=== PATIENT | male | born 1960 | race Caucasian/White ===

== ENCOUNTER → 2017-05-08 | Outpatient (CLI) | payer MEDICARE ==
[2014-03-14 16:40] VITALS: BMI 45.5
[~2017-05-08] MED LIST: ALB0.5 INH; ALB17R INH; ALBU2.5V44 IH; ALBU8.5H IH; ALBU8.5H12 IH; ALBUDR INH; AMIT-108 PO; AMIT100T53 PO; ASP325 PO; ASPI-719 PO; AUG875 PO; AUGMENTIN; AZI250 PO; AZIT500T47 PO; CALC150C PO; CALC500T42 PO; CALC600T59 PO; CALC600T72 PO; CEF300 PO; CEFU500T10 PO; CEP500 PO; CEPH500T7 PO; CIP500 PO; CYAN500T49 PO; CYAN50TA3 PO; CYC10 PO; CYCL10TA29 PO; DIC10 PO; DICL1ADH32 TD; DIPH-1 PO; DOCU-299 PO; DUONEB INH; ENO40I SQ; FAM20 PO; FLU10 PO; FLU20 PO; FLUO-177 PO; FLUO40CA76 PO; GABA-549 PO; GLUC500T13 PO; GUAI-447 PO; HCTZ25 PO; HYDR-385 PO; HYDR-389 PO; HYDR-855 PO; HYDR473S4 PO; IBU200 PO; IBU600 PO; IBU800 PO; IBUP800T37 PO; INHALER; KET10 PO; LEVO500T PO; LIS10 PO; LIS20 PO; LISI-368 PO; LOR10/325 PO; LOR10/500 PO; LOR5 PO; LOR5/325 PO; LOR7.5/325 PO; LOV20 PO; LOVA20TA99 PO; MELO-207 PO; METH4TAB57 PO; METO-259 PO; METR-1 PO; METR250 PO; METXL50 PO; MIR; MIRT-22 PO; MORP-181 PO; MULT-1047 PO; MULT-1367 PO; MULT-806 PO; MULT-892 PO; MULT1CAP41 PO; NIT4 SL; NITRO; OXYC15TA79 PO; OXYC20TA86 PO; OXYC5CAP21 PO; OXYGEN INH; PER PO; PRE20 PO; PSE30 PO; RIZA10 PO; SPIR25TA78 PO; THIA100T55 PO; THIA20TA PO; TRA50 PO; TRAZ-133 PO; TRAZ50 PO; TRIC15T TOP; VENL150C61 PO; WARF4TAB47 PO; ZPACK; [UNRECOGNIZED DRUG - CODE] PO; toprol XL
== END ==
LOC: LAB 07:08
PROVIDERS: ATTEND Clinical Nurse Specialist Family Health
DX: Z79.899 Other long term (current) drug therapy (principal)
CPT/HCPCS: 36415; 82040; 82247; 82310; 82374; 82435; 82465; 82565; 82947; 83718; 84075; 84132; 84155; 84295; 84439; 84443; 84450; 84460; 84478; 84520

== ENCOUNTER → 2017-08-07 | Outpatient (CLI) | payer MEDICARE ==
[2014-03-14 16:40] VITALS: BMI 45.5
--- NOTE | 2017-08-07 12:56 | EKG ---
FACILITY: [facility] PATIENT NAME: JOE BLUNT : [id number] MR: [id number] V: [id number] EXAM DATE: ORDERING PHYSICIAN: TRUDI WALTERS TECHNOLOGIST: Erasmo Henson Reason : Blood Pressure : / mmHG Vent. Rate : 072 BPM Atrial Rate : 072 BPM P-R Int : 156 ms QRS Dur : 106 ms QT Int : 408 ms P-R-T Axes : 066 -28 066 degrees QTc Int : 446 ms Sinus rhythm Left axis Possible biatrial enlargement Nonspecific interventricular conduction delay Confirmed by MADHU SAAVEDRA ([id number]) on 08/07/2017 4:24:10 PM Referred By: Confirmed By:MADHU SAAVEDRA
== END ==
LOC: CARD 12:40
DX: I45.4 Nonspecific intraventricular block (principal)
CPT/HCPCS: 93005

== ENCOUNTER 2017-09-15 16:40 | Emergency (ER) | payer MEDICARE ==
[2014-03-14 16:40] VITALS: Wt 137.0 kg
[2017-09-15] MEDS ORDERED: METH10 PO (17:04)
[2017-09-15] MEDS ORDERED: METH-278 PO (17:06)
--- NOTE | 2017-09-15 17:09 | ER Report ---
History and Physical Time Seen By MD: 17:08 Hx. of Stated Complaint: URINARY RETENTION SINCE FRIDAY, GETTING WORSE, ALSO HAS LOW BACK PAIN HPI/ROS CHIEF COMPLAINT: Urinary retention HISTORY OF PRESENT ILLNESS: This is a 57-year-old male who presents to the emergency department for urinary retention and flank pain. Patient states that over the last couple of days he's had intermittent urinary retention, with some increased back pain. Patient states he's had some kidney failure issues in the past, as well as kidney stones. Patient also states that he has right lower quadrant pain. Patient denies chest pain or shortness of breath. No fevers or chills. No rashes. REVIEW OF SYSTEMS: Constitutional: No fever, no chills. Eyes: No discharge. ENT: No sore throat. Cardiovascular: No chest pain, no palpitations. Respiratory: No cough, no shortness of breath. Gastrointestinal: As above. Genitourinary: As above. Musculoskeletal: As above. Skin: No rashes. Neurological: No headache. Allergies: Coded Allergies: codeine (Verified Allergy, Mild, RASH, 09/15/17) latex (Verified Allergy, Unknown, 09/15/17) PT STATES THEY TOLD HIM LAST TIME HE WAS HERE THAT HE WAS ALLERGIC TO IT. lactose (Verified Adverse Reaction, Unknown, 09/15/17) Home Meds Active Scripts Sulfamethoxazole/Trimet 800-160 Mg Tab (BACTRIM DS TABLET) 1 Each Tablet, 1 TAB PO Q12H for 5 Days, #9 TAB Prov:JORGE L HOYOS [facility]- 09/15/17 Venlafaxine Hcl (EFFEXOR XR) 150 Mg Cap.er.24h, 150 MG PO QDAY, #30 Do not take until see Steve Escalante [facility] to discuss whether to stay on this medication. Prov:MADHU SAAVEDRA MD 03/16/14 Reported Medications Methocarbamol (METHOCARBAMOL) 500 Mg Tablet, 500 MG PO QDAY 09/15/17 Methadone Hcl (METHADONE HCL) 10 Mg Tab, 10 MG PO BID, TAB 09/15/17 Fluoxetine Hcl (FLUOXETINE HCL) 20 Mg Capsule, 3 TAB PO DAILY, #90 02/09/16 Oxycodone Hcl 15 Mg Tab (OXYCODONE HCL 15 MG TAB) 15 Mg Tablet, 1 TAB PO 5XD, # 150 02/09/16 Gabapentin (GABAPENTIN) 300 Mg Capsule, 300 MG PO QID 12/20/12 Lovastatin (Mevacor) 20 Mg Tab, 20 MG PO QHS, 0 Refills 05/17/11 Lisinopril (Lisinopril) 20 Mg Tablet, 20 MG PO QDAY, 0 Refills 05/17/11 Discontinued Reported Medications Morphine Sulfate (MS CONTIN) 15 Mg Tablet.er, 10 MG PO BID 08/08/16 Cephalexin 500 Mg Tab (KEFLEX 500 MG TAB) 500 Mg Tablet, 500 MG PO Q6H, #12 TAB 0 Refills 07/17/16 Hydrocodone Bit/Acetaminophen (HYDROCODON-ACETAMINOPHEN 5-325) 1 Each Tablet, 1- 2 EACH PO Q4-6H Y for PAIN, #40 TAB 0 Refills 07/17/16 Spironolactone (SPIRONOLACTONE) 25 Mg Tablet, 25 MG PO DAILY, TAB 02/09/16 Mirtazapine (MIRTAZAPINE) 15 Mg Tablet, 2 TAB PO DAILY, #180 02/09/16 Amitriptyline Hcl (AMITRIPTYLINE HCL) 50 Mg Tablet, 3 TAB PO DAILY, #90 02/09/16 Cyclobenzaprine Hcl (CYCLOBENZAPRINE HCL) 10 Mg Tablet, 1 TAB PO TID, #90 02/09/16 Diclofenac Epolamine (FLECTOR) 1 Each Patch.td12, 1 EACH TD DAILY 03/14/14 Albuterol Sulfate 90 Mcg/Act (PROAIR HFA 90 MCG/ACT) 8.5 Gm Hfa.aer.ad, 1-2 PUFF IH 3-4XD 03/14/14 Albuterol/Ipratropium (Duoneb) 3 Ml Soln, 3 ML INH Q4H, 0 Refills 08/16/11 Calcium Carbonate (Calcium) 600 Mg Tablet, 600 MG PO QDAY, 0 Refills 05/17/11 Cyanocobalamin (Vitamin B12) 500 Mcg Tablet, 500 MCG PO DAILY, 0 Refills 05/17/11 Discontinued Scripts Meloxicam (MELOXICAM) 15 Mg Tablet, 15 MG PO QDAY, #10 TAB Prov:PAWAN STOKES MD 02/09/16 Past Medical/Surgical History Patient has a past medical and surgical history of angina, hypertension, hypercholesterolemia, emphysema, COPD, uses BiPAP at night, diverticulitis, GERD , hiatal hernia, with peak surgeries, multiple orthopedic fractures, chronic back pain, parotid stones removed, wears glasses, history of alcohol and narcotic abuse, gastric bypass, left ankle surgery rotator cuff surgery right shoulder rotator cuff repair, tumor on left chest excised. Reviewed Nurses Notes: Yes Hx Smoking: Yes (OCC CIGAR SMOKER) Smoking Status: Former Smoker Exposure to Second Hand Smoke?: No Hx Substance Use Disorder: No (SOBER X 5 YRS, POT) Hx Alcohol Use: No Constitutional Vital Sign - Last 24 Hours 09/15/17 09/15/17 09/15/17 09/15/17 16:57 16:58 17:00 17:10 Temp 98.3 Pulse 86 78 Resp 20 B/P (MAP) 115/85 115/85 (95) 114/95 (101) Pulse Ox 94 95 O2 Delivery Room Air 09/15/17 09/15/17 09/15/17 09/15/17 17:30 17:40 18:00 18:10 Pulse 83 71 B/P (MAP) 93/79 (84) 100/77 (85) Pulse Ox 95 93 09/15/17 09/15/17 09/15/17 09/15/17 18:30 18:35 18:50 19:02 Pulse 73 73 B/P (MAP) 103/79 (87) 105/74 (84) Pulse Ox 92 92 09/15/17 09/15/17 09/15/17 09/15/17 19:05 19:10 19:25 19:30 Pulse 71 73 73 B/P (MAP) 94/70 (78) Pulse Ox 92 94 93 09/15/17 09/15/17 09/15/17 09/15/17 19:40 19:55 20:00 20:05 Pulse 77 72 70 B/P (MAP) 90/68 (75) Pulse Ox 94 93 93 09/15/17 09/15/17 09/15/17 09/15/17 20:20 20:30 20:35 20:50 Pulse 71 64 71 B/P (MAP) 93/72 (79) Pulse Ox 91 91 90 09/15/17 09/15/17 09/15/17 09/15/17 21:00 21:05 21:10 21:25 Pulse 70 72 66 B/P (MAP) 92/68 (76) Pulse Ox 93 95 96 09/15/17 09/15/17 09/15/17 21:30 21:34 21:39 Pulse 73 B/P (MAP) 116/76 (89) 111/79 (90) Pulse Ox 92 Intake and Output 09/15/17 09/15/17 09/16/17 15:00 23:00 07:00 Intake Total 1000 ml Balance 1000 ml Physical Exam General Appearance: The patient is alert, has no immediate need for airway protection and no signs of toxicity. Eyes: Pupils equal and round no pallor or injection. ENT, Mouth: Mucous membranes are moist. Respiratory: There are no retractions, lungs are clear to auscultation. Cardiovascular: Regular rate and rhythm, no murmurs, clicks or rubs. Gastrointestinal: Abdomen is round and soft and suprapubic tenderness, right CVA tenderness, no masses, bowel sounds normal. Neurological: Nor into 4. Moving all extremities. Following all commands. No focal neuro deficits. Skin: Warm and dry, no rashes. Musculoskeletal: Neck is supple non tender. Extremities are nontender, nonswollen and have full range of motion. DIFFERENTIAL DIAGNOSIS: After history and physical exam differential diagnosis was considered for abdominal pain including but not limited to appendicitis, nephrolithiasis, cholecystitis, gastritis and urinary tract infection. Medical Decision Making Data Points Result Diagram: 09/15/17 1733 09/15/17 1733 Laboratory Hematology Test 09/15/17 17:33 Red Blood Count 5.82 M/uL (4.00-5.60) Mean Corpuscular Volume 82.9 fL (80.0-96.0) Mean Corpuscular Hemoglobin 28.4 pg (26.0-33.0) Mean Corpuscular Hemoglobin Concent 34.3 g/dL (32.0-36.0) Red Cell Distribution Width 16.0 % (11.5-14.5) Mean Platelet Volume 8.2 fL (7.2-11.1) Neutrophils (%) (Auto) 68.0 % (39.4-72.5) Lymphocytes (%) (Auto) 22.5 % (17.6-49.6) Monocytes (%) (Auto) 7.6 % (4.1-12.4) Eosinophils (%) (Auto) 0.9 % (0.4-6.7) Basophils (%) (Auto) 1.0 % (0.3-1.4) Nucleated RBC Relative Count (auto) 0.1 /100WBC Neutrophils # (Auto) 5.8 K/uL (2.0-7.4) Lymphocytes # (Auto) 1.9 K/uL (1.3-3.6) Monocytes # (Auto) 0.6 K/uL (0.3-1.0) Eosinophils # (Auto) 0.1 K/uL (0.0-0.5) Basophils # (Auto) 0.1 K/uL (0.0-0.1) Nucleated RBC Absolute Count (auto) 0.01 K/uL Urine Color Yellow Urine Clarity Slightly-cloudy Urine pH 5.0 pH (4.8-9.5) Urine Specific [place] 1.021 Urine Protein Negative mg/dL (NEGATIVE) Urine Glucose (UA) Negative mg/dL (NEGATIVE) Urine Ketones Negative mg/dL (NEGATIVE) Urine Blood Negative (NEGATIVE) Urine Nitrite Negative (NEGATIVE) Urine Bilirubin Negative (NEGATIVE) Urine Urobilinogen 4.0 mg/dL (0.2-1.9) Urine Leukocyte Esterase Large (NEGATIVE) Urine RBC 3 /HPF (0-2/HPF) Urine WBC 73 /HPF (0-5/HPF) Urine Squamous Epithelial Cells Many /LPF (</=FEW) Urine Bacteria Few /HPF (NONE-FEW) Urine Mucus Few /HPF (NONE-FEW) Sodium Level 135 mmol/L (137-145) Potassium Level 4.6 mmol/L (3.5-5.0) Chloride Level 101 mmol/L (98-107) Carbon Dioxide Level 21 mmol/L (22-30) Blood Urea Nitrogen 30 mg/dl (9-21) Creatinine 1.40 mg/dl (0.66-1.25) Glomerular Filtration Rate Calc 51.9 Random Glucose 105 mg/dl (75-110) Calcium Level 8.9 mg/dl (8.4-10.2) Total Bilirubin 0.6 mg/dl (0.2-1.3) Aspartate Amino Transf (AST/SGOT) 27 U/L (0-35) Alanine Aminotransferase (ALT/SGPT) 31 U/L (0-56) Alkaline Phosphatase 140 U/L (0-126) Total Protein 7.1 gm/dl (6.3-8.2) Albumin 3.9 g/dl (3.5-5.0) Lipase 59 U/L (23-300) Chemistry Test 09/15/17 17:33 White Blood Count 8.5 k/uL (4.5-11.0) Red Blood Count 5.82 M/uL (4.00-5.60) Hemoglobin 16.5 g/dL (14.0-18.0) Hematocrit 48.3 % (42.0-52.0) Mean Corpuscular Volume 82.9 fL (80.0-96.0) Mean Corpuscular Hemoglobin 28.4 pg (26.0-33.0) Mean Corpuscular Hemoglobin Concent 34.3 g/dL (32.0-36.0) Red Cell Distribution Width 16.0 % (11.5-14.5) Platelet Count 263 K/uL (150-450) Mean Platelet Volume 8.2 fL (7.2-11.1) Neutrophils (%) (Auto) 68.0 % (39.4-72.5) Lymphocytes (%) (Auto) 22.5 % (17.6-49.6) Monocytes (%) (Auto) 7.6 % (4.1-12.4) Eosinophils (%) (Auto) 0.9 % (0.4-6.7) Basophils (%) (Auto) 1.0 % (0.3-1.4) Nucleated RBC Relative Count (auto) 0.1 /100WBC Neutrophils # (Auto) 5.8 K/uL (2.0-7.4) Lymphocytes # (Auto) 1.9 K/uL (1.3-3.6) Monocytes # (Auto) 0.6 K/uL (0.3-1.0) Eosinophils # (Auto) 0.1 K/uL (0.0-0.5) Basophils # (Auto) 0.1 K/uL (0.0-0.1) Nucleated RBC Absolute Count (auto) 0.01 K/uL Urine Color Yellow Urine Clarity Slightly-cloudy Urine pH 5.0 pH (4.8-9.5) Urine Specific [place] 1.021 Urine Protein Negative mg/dL (NEGATIVE) Urine Glucose (UA) Negative mg/dL (NEGATIVE) Urine Ketones Negative mg/dL (NEGATIVE) Urine Blood Negative (NEGATIVE) Urine Nitrite Negative (NEGATIVE) Urine Bilirubin Negative (NEGATIVE) Urine Urobilinogen 4.0 mg/dL (0.2-1.9) Urine Leukocyte Esterase Large (NEGATIVE) Urine RBC 3 /HPF (0-2/HPF) Urine WBC 73 /HPF (0-5/HPF) Urine Squamous Epithelial Cells Many /LPF (</=FEW) Urine Bacteria Few /HPF (NONE-FEW) Urine Mucus Few /HPF (NONE-FEW) Glomerular Filtration Rate Calc 51.9 Calcium Level 8.9 mg/dl (8.4-10.2) Total Bilirubin 0.6 mg/dl (0.2-1.3) Aspartate Amino Transf (AST/SGOT) 27 U/L (0-35) Alanine Aminotransferase (ALT/SGPT) 31 U/L (0-56) Alkaline Phosphatase 140 U/L (0-126) Total Protein 7.1 gm/dl (6.3-8.2) Albumin 3.9 g/dl (3.5-5.0) Lipase 59 U/L (23-300) Urinalysis Test 09/15/17 17:33 Urine Color Yellow Urine Clarity Slightly-cloudy Urine pH 5.0 pH (4.8-9.5) Urine Specific [place] 1.021 Urine Protein Negative mg/dL (NEGATIVE) Urine Glucose (UA) Negative mg/dL (NEGATIVE) Urine Ketones Negative mg/dL (NEGATIVE) Urine Blood Negative (NEGATIVE) Urine Nitrite Negative (NEGATIVE) Urine Bilirubin Negative (NEGATIVE) Urine Urobilinogen 4.0 mg/dL (0.2-1.9) Urine Leukocyte Esterase Large (NEGATIVE) Urine RBC 3 /HPF (0-2/HPF) Urine WBC 73 /HPF (0-5/HPF) Urine Squamous Epithelial Cells Many /LPF (</=FEW) Urine Bacteria Few /HPF (NONE-FEW) Urine Mucus Few /HPF (NONE-FEW) EKG/Imaging Imaging Location: [facility] Patient: Eleno Nunes : 1960 Visit/Account:[id number] Date of Sevice: 09/15/2017 COMPUTED TOMOGRAPHY OF THE Abdomen and Pelvis without CONTRAST INDICATION: Abdominal and flank pain. TECHNIQUE: Contiguous axial 3.[address] images were obtained through the abdomen and pelvis without contrast. Coronal and sagittal reformatted images were submitted. COMPARISON: CT abdomen and pelvis February 09, 2016. FINDINGS: Lung bases: Trace atelectasis at the lung bases. Liver and hepatic vasculature: Limit parenchymal evaluation without contrast. Gallbladder and bile ducts: Surgically absent gallbladder. Mild prominence of the common bile duct in keeping with cholecystectomy. Spleen: Normal Pancreas: Mild pancreatic atrophy. Adrenals: Normal Kidneys, ureters and bladder: Mild nonspecific bilateral perinephric stranding. Punctate nonobstructive right renal calculus. Unremarkable bladder. Retroperitoneum and aorta: Normal caliber aorta. Mild scattered atherosclerosis. GI tract, mesentery and peritoneum: No bowel obstruction. No free fluid or free air. Postsurgical change at the stomach. Prostate: Unremarkable. Bones and soft tissues: No acute osseous abnormality. Multilevel degenerative findings are severe in the lumbar spine. IMPRESSION: 1. Mild bilateral perinephric stranding is nonspecific. Correlate with urinalysis. There is a punctate nonobstructive right renal calculus. 2. Otherwise, no clear evidence of acute intra-abdominal abnormality. One of the following dose optimization techniques was utilized in the performance of this exam: Automated exposure control; adjustment of the mA and/ or kV according to the patient's size; or use of an iterative reconstruction technique. Specific details can be referenced in the facility's radiology CT exam operational policy. Report Dictated By: Maxime Brand MD at 09/15/2017 6:41 PM Report E-Signed By: Maxime Brand MD at 09/15/2017 7:17 PM WSN:[id number] ED Course/Re-evaluation Clinical Indication for ER IV: Hydration, IV Access ED Course The patient was amended to room. His physical were obtained. Differential diagnoses were considered. An IV was started. Patient was given a 1 L normal saline bolus, 4 mg IV Zofran, 4 mg IV morphine 2. A CBC, CMP were obtained. CBC unremarkable. Chemistry showing BUN 30 creatinine 1.4. The BUN and creatinine are within the normal ranges for the patient as compared to previous studies. Based noncontrast CT of the abdomen and pelvis showing a nonobstructive renal calculi on the right, with some mild bilateral perinephric stranding.UA showing large leukocyte esterase, with many squamous epithelial cells and 73 urine WBC's. I did send the urine off for culture. I'm going to go ahead and treat the patient for a urinary tract infection as he is symptomatic. He did review these results with the patient. I did also instruct him to follow up with his primary care provider in 2-4 days for reevaluation of his symptoms as well as the urine. Patient was also given 1 g of Rocephin in the emergency department and started on Bactrim. Prescription was sent to the patient's pharmacy for Bactrim. The patient had not equations or concerns at this time and was discharged home. Decision to Disposition Date: September 15, 2017 Decision to Disposition Time: 21:53 Depart Departure Latest Vital Signs Vital Signs Date Time Temp Pulse Resp B/P (MAP) Pulse Ox O2 Delivery O2 Flow Rate FiO2 09/15/17 21:39 73 92 09/15/17 21:34 111/79 (90) 09/15/17 16:57 98.3 20 Room Air Core Temperature (Celsius): 36.5 Impression: Primary Impression: Urinary tract infection Additional Impressions: Dysuria Kidney stone Condition: Improved Disposition: HOME OR SELF-CARE Referrals: STEVE ESCALANTE [facility] Sulfamethoxazole/Trimet 800-160 Mg Tab (BACTRIM DS TABLET) 1 Each Tablet 1 TAB PO Q12H for 5 Days, #9 TAB Prov: JORGE L HOYOS- 09/15/17 Patient Instructions: Dysuria (ED), Urinary Tract Infection in Men (ED) Additional Instructions: Drink plenty of fluids. Get plenty of rest. Take the Bactrim as prescribed. Follow up with Steve Escalante in 2-4 days for reevaluation of the urinary tract infection. Continue with your current medications. Return to the emergency department for any other concerns or worsening symptoms. Problem Qualifiers Primary Impression: Urinary tract infection Urinary tract infection type: acute cystitis Hematuria presence: without hematuria Qualified Codes: N30.00 - Acute cystitis without hematuria JORGE L HOYOS-BC September 15, 2017 17:09
[2017-09-15] MEDS ORDERED: ONDANSETRON 4 MG/2 ML VIAL IVP ONE (17:20)
[2017-09-15] MEDS ORDERED: MORPHINE 4 MG/ML SDV IVP ONE ×2 (17:20→21:15)
[2017-09-15 17:48] LABS: PLATELET COUNT, AUTOMATED 263 K/uL (150-450)
--- NOTE | 2017-09-15 19:21 | RADIOLOGY IMAGING REPORT ---
FACILITY: [facility] [place] PATIENT NAME: Eleno Nunes : 1960 MR: [id number] V: [id number] EXAM DATE: ORDERING PHYSICIAN: JORGE L HOYOS TECHNOLOGIST: Location: [facility] [place] Patient: Eleno Nunes : 1960 Visit/Account:[id number] Date of Sevice: 09/15/2017 COMPUTED TOMOGRAPHY OF THE Abdomen and Pelvis without CONTRAST INDICATION: Abdominal and flank pain. TECHNIQUE: Contiguous axial 3.[address] images were obtained through the abdomen and pelvis without co ntrast. Coronal and sagittal reformatted images were submitted. COMPARISON: CT abdomen and pelvis February 09, 2016. FINDINGS: Lung bases: Trace atelectasis at the lung bases. Liver and hepatic vasculature: Limit parenchymal evaluation without contrast. Gallbladder and bile ducts: Surgically absent gallbladder. Mild prominence of the common bile duct i n keeping with cholecystectomy. Spleen: Normal Pancreas: Mild pancreatic atrophy. Adrenals: Normal Kidneys, ureters and bladder: Mild nonspecific bilateral perinephric stranding. Punctate nonobstruct seth right renal calculus. Unremarkable bladder. Retroperitoneum and aorta: Normal caliber aorta. Mild scattered atherosclerosis. GI tract, mesentery and peritoneum: No bowel obstruction. No free fluid or free air. Postsurgical meir nge at the stomach. Prostate: Unremarkable. Bones and soft tissues: No acute osseous abnormality. Multilevel degenerative findings are severe in the lumbar spine. IMPRESSION: 1. Mild bilateral perinephric stranding is nonspecific. Correlate with urinalysis. There is a punctat e nonobstructive right renal calculus. 2. Otherwise, no clear evidence of acute intra-abdominal abnormality. One of the following dose optimization techniques was utilized in the performance of this exam: Autom ated exposure control; adjustment of the mA and/or kV according to the patient's size; or use of an i terative reconstruction technique. Specific details can be referenced in the facility's radiology C T exam operational policy. Report Dictated By: Maxime Brand MD at 09/15/2017 6:41 PM Report E-Signed By: Maxime Brand MD at 09/15/2017 7:17 PM WSN:[id number]
[2017-09-15] MEDS ORDERED: cefTRIAXone 1 GM VIAL IVP ONE (19:40)
[2017-09-15] MEDS ORDERED: TRIMETH/SULFA DS 160-800MG TAB PO ONE (19:40)
[2017-09-15] MEDS ORDERED: NS(*) 0.9% 1000 ML BAG 1,000 ML IV ONE (19:40)
[2017-09-15] MEDS ORDERED: SULF-198 PO (21:08)
[2017-09-15 21:34] VITALS: BP 111/79
== END 2017-09-15 22:03 | disposition home or self-care (01) ==
LOC: ER 17:02
DX: N30.00 Acute cystitis without hematuria (principal); R30.0 Dysuria; N20.0 Calculus of kidney; B96.20 Unspecified Escherichia coli [E. coli] as the cause of diseases classified elsewhere
CPT/HCPCS: 74176; 81001; 83690; 85025; 87088; 96361; 96374; 96375; 96376; 99284; A9270; J0696; J2270; J2405; J7030; 82040; 82247; 82310; 82374; 82435; 82565; 82947; 84075; 84132; 84155; 84295; 84450; 84460; 84520; 87077; 87186

== ENCOUNTER → 2017-11-03 | Outpatient (CLI) | payer MEDICARE ==
[2014-03-14 16:40] VITALS: BMI 45.5
[~2017-11-03] MED LIST changes: +METH-278 PO; +METH10 PO; -SPIR25TA78 PO; +SPIR25TA80 PO; +SULF-198 PO
[2017-11-03 07:29] LABS: PLATELET COUNT, AUTOMATED 249 K/uL (150-450)
--- NOTE | 2017-11-03 08:00 | RADIOLOGY IMAGING REPORT ---
FACILITY: [facility] PATIENT NAME: Eleno Nunes : 1960 MR: [id number] V: [id number] EXAM DATE: ORDERING PHYSICIAN: SULLY MOORE TECHNOLOGIST: Location: [facility] [place] Patient: Eleno Nunes : 1960 Visit/Account:[id number] Date of Sevice: 11/03/2017 CHEST PA AND LAT Additional pertinent History: Pre-op, no cough no chest pain COMPARISON STUDIES: 09/26/2016 FINDINGS: Support lines and catheters: None Lungs and Pleura: Lung adamson well expanded with no infiltrates or consolidations. No parenchymal ma ss lesions are seen. There are no effusions Heart and vasculature: Negative. Ginger and Mediastinum: Negative. Bones and Chest wall: Negative. Upper Abdomen: Negative. IMPRESSION: 1. Negative chest. No interval change Report Dictated By: Anton Ngo MD at 11/03/2017 7:56 AM Report E-Signed By: Anton Ngo MD at 11/03/2017 7:57 AM WSN:[id number]
== END ==
LOC: RAD 07:05
PROVIDERS: ATTEND Orthopaedic Surgery Hand Surgery
DX: Z01.818 Encounter for other preprocedural examination (principal); Z01.812 Encounter for preprocedural laboratory examination; M24.112 Other articular cartilage disorders, left shoulder; N39.0 Urinary tract infection, site not specified; B96.89 Other specified bacterial agents as the cause of diseases classified elsewhere
CPT/HCPCS: 36415; 81001; 82040; 82247; 82310; 82374; 82435; 82565; 82947; 84075; 84132; 84155; 84295; 84450; 84460; 84520; 85025; 87088

== ENCOUNTER → 2017-11-10 | Outpatient (CLI) | payer MEDICARE ==
[2014-03-14 16:40] VITALS: BMI 45.5
== END ==
LOC: LAB 10:01
PROVIDERS: ATTEND Anesthesiology
DX: Z01.812 Encounter for preprocedural laboratory examination (principal); M19.012 Primary osteoarthritis, left shoulder; M19.071 Primary osteoarthritis, right ankle and foot
CPT/HCPCS: 81001

== ENCOUNTER 2017-11-21 01:37 | Inpatient (IN) | payer MEDICARE, MEDICAID ==
[2014-03-14 16:40] VITALS: Ht 180.3 cm; Wt 138.3 kg
[2017-11-20 14:29] LABS: INR 0.98
[~2017-11-21] VITALS: Ht 180.3 cm; Wt 138.3 kg
[2017-11-21] VITALS (17 sets, daily range): BP systolic 108–152; BP diastolic 44–106
[~2017-11-21 01:37] MED LIST changes: +METH5 PO; +OXYC20TA99 PO; +TAMS0.4C70 PO
[2017-11-21] MEDS ORDERED: EPINEPHrine HCL 1 MG/ML AMP ONE (07:38)
[2017-11-21] MEDS ORDERED: NS 0.9% 20 ML SDV 0 ML ONE (07:40)
[2017-11-21] MEDS ORDERED: VASOPRESSIN 20 UNIT/ML VIAL ONE (07:42)
[2017-11-21] MEDS ORDERED: TRANEXAMIC AC 1000 MG/10ML SDV 1,000 MG in DEXTROSE 5% 50 ML BAG 50 ML IVPB ONE (09:15)
[2017-11-21] MEDS ORDERED: ROPIVACAINE 0.2% 20 ML VIAL ONE (09:24)
[2017-11-21] MEDS ORDERED: DEXAMETHASONE SOD PHOS 10MG/ML ONE (09:24)
[2017-11-21] MEDS ORDERED: ROPIVACAINE 0.5% 20 ML VIAL ONE (09:24)
[2017-11-21] MEDS ORDERED: DEXAMETHASONE SOD 4 MG/ML VIAL ONE (09:34)
[2017-11-21] MEDS ORDERED: fentaNYL CITR 250 MCG/5 ML AMP ONE ×2 (09:35→12:28)
[2017-11-21] MEDS ORDERED: PROPOFOL EMUL(*) 10MG/ML 20 ML 20 ML ONE (09:35)
[2017-11-21] MEDS ORDERED: BETAMETHASONE/ACETATE 6 MG/1ML ONE (09:48)
[2017-11-21] MEDS ORDERED: methylPREDNIS ACE 40MG/ML VIAL ONE ×2 (09:51→11:06)
[2017-11-21] MEDS ORDERED: VANCOMYCIN(*) 1 GM VIAL 2 GM in NS(*) 0.9% 250 ML BAG 250 ML IVPB ONE (10:40)
[2017-11-21] MEDS ORDERED: LIDOCAINE/SOD BICARB 8.4% SYR ID ONE (10:40)
[2017-11-21] MEDS ORDERED: MIDAZOLAM 2 MG/2 ML VIAL IVP PRN (10:40)
[2017-11-21] MEDS ORDERED: cloNIDine EPIDUR INJ 100MCG/ML 40 MCG, ROPIVACAINE 0.5% 20 ML VIAL 25 ML, EPINEPHrine H... INJ ONE (10:40)
[2017-11-21] MEDS ORDERED: NORMOSOL R SOLN(*) 1000 ML BAG 1,000 ML IV PRN (10:40)
[2017-11-21] MEDS ORDERED: PREGABALIN 150 MG CAPSULE PO ONE (10:40)
[2017-11-21] MEDS ORDERED: FAMOTIDINE 20 MG TAB PO ONE (10:40)
[2017-11-21] MEDS ORDERED: TRANEXAMIC AC 1000 MG/10ML SDV ONE ×2 (11:30)
[2017-11-21] MEDS ORDERED: SUGAMMADEX SOD 500 MG/5 ML SDV ONE (11:34)
[2017-11-21] MEDS ORDERED: ROCURONIUM BROM 10 MG/ML 10 ML ONE (11:45)
[2017-11-21] MEDS ORDERED: ONDANSETRON 4 MG/2 ML VIAL ONE (11:57)
[2017-11-21] MEDS ORDERED: KETAMINE HCL 200 MG/20 ML MDV ONE ×2 (12:27→13:40)
[2017-11-21] MEDS ORDERED: fentaNYL CITR 100 MCG/2 ML AMP ONE (14:21)
[2017-11-21] MEDS ORDERED: NALOXONE HCL 0.4 MG/ML VIAL IVP PRN (15:15)
[2017-11-21] MEDS ORDERED: MAGNESIUM CITRATE 300 ML BTL PO PRN (15:15)
[2017-11-21] MEDS ORDERED: PROMETHAZINE 25 MG/ML 1 ML AMP IVP PRN (15:15)
[2017-11-21] MEDS ORDERED: diphenhydrAMINE 25 MG CAP PO PRN (15:15)
[2017-11-21] MEDS ORDERED: ONDANSETRON 4 MG/2 ML VIAL IVP PRN (15:15)
[2017-11-21] MEDS ORDERED: MORPHINE SULFATE 30 MG PCA IV PRN (15:15)
[2017-11-21] MEDS ORDERED: KCL/D5LR 20 MEQ/1000 ML PREMIX 1,000 ML IV PRN (15:15)
[2017-11-21] MEDS ORDERED: ACETAMINOPHEN 500 MG TAB PO PRN (15:15)
[2017-11-21] MEDS ORDERED: FLUSH 10 ML SYR IVP PRN (15:15)
--- NOTE | 2017-11-21 15:17 | RADIOLOGY IMAGING REPORT ---
FACILITY: [facility] [place] PATIENT NAME: Eleno Nunes : 1960 MR: [id number] V: [id number] EXAM DATE: ORDERING PHYSICIAN: SULLY MOORE TECHNOLOGIST: Location: [facility] Patient: Eleno Nunes : 1960 Visit/Account:[id number] Date of Sevice: 11/21/2017 Technique: SHOULDER 1 VIEW LEFT HISTORY: Postop Comparison studies: None FINDINGS: Present is a reverse left shoulder arthroplasty. The alignment is grossly maintained. Exp ected adjacent postoperative findings are present. IMPRESSION: 1. Left shoulder arthroplasty without evidence of hardware complication. Report Dictated By: Dread Etienne DO at 11/21/2017 3:10 PM Report E-Signed By: Dread Etienne DO at 11/21/2017 3:12 PM WSN:[id number]
--- NOTE | 2017-11-21 15:43 | OPERATIVE REPORT 1 ---
EVENT DATE: November 21, 2017 SURGEON: Jhonny Ribeiro MD ANESTHESIOLOGIST: uRy Kelley MD ANESTHESIA: Scalene block plus general. INTERNATIONAL RELATIONS PROFESSOR: Nilson Henderson PA-C PREOPERATIVE DIAGNOSES 1. Left cuff tear arthropathy with retained anchors. 2. Right ankle arthritis. POSTOPERATIVE DIAGNOSES 1. Left cuff tear arthropathy with retained anchors. 2. Right ankle arthritis. PROCEDURES PERFORMED 1. Left shoulder hardware removal (anchors) with conversion to reverse total shoulder arthroplasty. 2. Steroid injection under fluoroscopic guidance, right ankle. ESTIMATED BLOOD LOSS 50 INTRAVENOUS FLUIDS 1700 TOURNIQUET TIME None. SPECIMENS None. COMPLICATIONS None. IMPLANTS USED Delta Xtend DePuy Reverse Total Shoulder implant using a #14 WRIGHT-coated, press- fit stem, a size 2 eccentric epiphysis, a metaglene, a 42 eccentric glenosphere , and a 42 +6 polyethylene insert. SUMMARY OF PROCEDURE The patient was brought into the operating room and placed on the OR table in the supine position. He was given a scalene block by Dr. Kelley. He was then given a light general anesthetic and placed in the modified beach chair position on a standard OR table with a bump under his shoulder. The left upper extremity was free draped after adequate prep. A deltopectoral approach was taken, deepened through skin and subcutaneous tissue. He had a lot of scar tissue in his shoulder, and it took a while to free up the planes in the subdeltoid plane. We were able to get enough exposure to place the posterior humeral retractor in an adequate fashion. The subscapularis was in very poor condition. It really looked more like a capsular structure, but it was fairly thick. It just did not have a lot of tendinous material. This tissue was divided and placed medially after placing traction sutures. We then subluxated the humeral head proximally and gained access through the superior cortex with progressively larger reamers, getting up to a 14 where we had good cortical chatter. The cutting guide was set with a 10-degree retroversion position, and our cut was made. When we made this cut using the standard reference, it really seemed like it was a little bit too high. I recut just a bit lower right down to the margin of the remaining rotator cuff insertion. A metal guard was placed, and the humeral head was retracted after we had confirmed that the capsule was fully released from the neck. We tried several different humeral retractors at the glenoid and ultimately selected the rabbit ears retractor with a lighted anterior retractor and a smooth Hohmann superiorly. We cleared the labrum and then continued to work circumferentially around the glenoid, freeing up tissue until we got good exposure of the glenoid. At this time, we did our guidewire and central drill, after which we reamed. The superior reaming was completed. We did a trial. It looked good, and so we came back and placed the metaglene. Screws were placed at the appropriate length. We placed a 30 locker superiorly, a 42 locker inferiorly, and then anterior and posterior 18 nonlocker. We placed our 42 eccentric glenosphere, making sure it was seated properly, and then brought the humerus forward once again. Standard preparattions followed including placement of the trial stem, marking the anterior fin, and then selecting an epiphysis. The #2 offset was the best choice. We reamed for this and then trialed. We trialed a +3 and a +6 , liking the +6 mainly because of the relatively poor condition of the subscapularis. I wanted to make sure we had good stability. We then re- dislocated and placed the final implant. The wound was irrigated as it had been before placing the implant. We injected local anesthetic deep, and then we went superficial with it again. We did repair the anterior capsular tissue and subscapular remnant. The wound was irrigated again before doing our final injections and then closing the skin with 3-0 Vicryl and 4-0 Monocryl. He was given a dry, sterile dressing, and then we injected his right ankle under fluoroscopic guidance using 80 mg of Depo-Medrol and 2 mL of lidocaine. He was transferred to the recovery area in stable condition. SHELBI
[2017-11-21] MEDS ORDERED: ALBUTEROL 8 GM INHALER INH PRN (16:25)
[2017-11-21] MEDS ORDERED: FLUO40CA76 PO (16:47)
[2017-11-21] MEDS ORDERED: ALB18R INH (16:47)
[2017-11-21] MEDS ORDERED: NALO4SPR (16:48)
[2017-11-21] MEDS ORDERED: LORA-630 PO (16:48)
[2017-11-21] MEDS ORDERED: CLON-327 PO (16:48)
--- NOTE | 2017-11-21 17:10 | Hospitalist Progress Note ---
Subjective Progress Notes Subjective The patient is a 57 year old male who is s/p L reverse total shoulder arthroplasty earlier today with Dr. Ribeiro. Per the anesthesiologist's record, the patient's estimated blood loss was 100cc . His low BP during the procedure was approximately 90/50 mmHg. 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 His PSH is significant for gastric bypass, rotator cuff repair, TKA and hernia surgery. Physical Exam Vital Signs Date Time Temp Pulse Resp B/P (MAP) Pulse Ox O2 Delivery O2 Flow Rate FiO2 11/21/17 15:32 98.0 84 16 131/99 (110) 94 Nasal Cannula 2.0 Intake and Output 11/22/17 07:00 Intake Total 3060 ml Output Total 100 ml Balance 2960 ml Intake Oral 1260 ml IV Total 1800 ml Output Estimated Blood Loss 100 ml General Appearance: Alert, Awake, No Acute Distress, Afebrile Neuro: No Gross deficits Cardiovascular: Regular Rate and Rhythm Respiratory: Clear to Auscultation GI: Soft and Non-Tender Extremities: Warm, Perfused, Other (SCDs in place.) Integumentary: Other (Large bandage in place over left shoulder.) Psych: Appropriate Mood & Affect Result Diagram: 11/21/17 1762 Assessment and Plan Problems: (1) S/p reverse total shoulder arthroplasty Status: Acute Assessment & Plan: The patient is doing well postoperatively. See Dr. Ribeiro's notes for complete details regarding the procedure. (2) Chronic pain syndrome Status: Chronic Assessment & Plan: The patient was on methadone and oxycodone which was stopped a week ago by his pain clinic. He was given clonidine 0.1mg tabs, 1/2 to one po tid and Ativan 0.5mg tabs qid for withdrawal. Dr. Ribeiro states he was instructed to give the patient pain meds as he would usually prescribe postoperatively. (3) Type II diabetes mellitus Status: Chronic Assessment & Plan: Per pre-op clearance note, his most recent HgA1c was 6.9. His actual lab work is not available for review. Will check a BMP in the am. (4) BRYAN (obstructive sleep apnea) Status: Chronic Assessment & Plan: On CPAP plus 3L O2 at home. Has machine with him. (5) HTN (hypertension) Status: Chronic Assessment & Plan: Not currently on antihypertensives to specifically treat HTN. He was give a 7 day course of clonidine 0.1mg tid for withdrawal symptoms by Dr. Resendiz. (6) CKD (chronic kidney disease) Status: Chronic (7) COPD (chronic obstructive pulmonary disease) Status: Chronic Assessment & Plan: He uses an albuterol MDI prn. (8) Depression Status: Chronic Assessment & Plan: Continue venlafaxine XR 150mg daily as well as Prozac 60mg ( 40mg cap + 20mg cap) daily. (9) Hyperlipidemia Status: Chronic Assessment & Plan: Continue lovastatin 20mg at HS. (10) Obesity Status: Chronic Assessment & Plan: The patient weighed over 600 pounds but has lost weight after gastric bypass surgery. Time Spent on Plan of Care: < 30 min Heart Failure Ejection Fraction %: 59 NYHA Class: II Is Patient on MAHAD Inhibitor?: Yes Is Patient on Beta Olga?: No Admission Weight: 326 Problem Qualifiers (1) S/p reverse total shoulder arthroplasty: Laterality: left Qualified Codes: Z96.612 - Presence of left artificial shoulder joint (2) CKD (chronic kidney disease): Chronic kidney disease stage: stage 3 (moderate) Qualified Codes: N18.3 - Chronic kidney disease, stage 3 (moderate) (3) Obesity: Serious obesity comorbidity presence: with serious comorbidity Body mass index : BMI 40.0-44.9 AURORA SAAVEDRA MD Nov 21, 2017 17:10
[2017-11-21] MEDS ORDERED: INSULIN HUM LISPRO 100 UN/ML 3 ML VIAL SUBQ PRN (17:40)
[2017-11-21] MEDS ORDERED: METHOCARBAMOL 500 MG TAB PO SCH (21:00)
[2017-11-21] MEDS ORDERED: LOVASTATIN 20 MG TAB PO SCH (21:00)
[2017-11-21] MEDS: cloNIDine HCL 0.1 MG TAB PO SCH (21:32)
[2017-11-22 03:17] VITALS: BP 123/85
[2017-11-22 06:13] LABS: PLATELET COUNT, AUTOMATED 175 K/uL (150-450)
[2017-11-22 07:37] VITALS: BP 183/121
[2017-11-22 08:00] VITALS: BP 133/98
[2017-11-22] MEDS: cloNIDine HCL 0.1 MG TAB PO SCH (08:04)
[2017-11-22] MEDS ORDERED: TAMSULOSIN HCL 0.4 MG CAP PO SCH (09:00)
[2017-11-22] MEDS ORDERED: FLUoxetine HCL 20 MG CAP PO SCH (09:00)
[2017-11-22] MEDS ORDERED: VENLAFAXINE XR 75 MG CAPCR PO SCH (09:00)
[2017-11-22] MEDS ORDERED: OXYC5CAP21 PO (09:03)
--- NOTE | 2017-11-22 11:06 | Hospitalist Progress Note ---
Subjective Progress Notes Subjective 57M admitted after L shoulder arthroplasty. Doing well this am, plan for d/c. Patient Complains of: Neurological: No: Syncope Cardiovascular: No: Chest Pain, Palpitations Respiratory: No: Cough, Congestion Gastrointestinal: No Nausea, No Vomiting Physical Exam Vital Signs Date Time Temp Pulse Resp B/P (MAP) Pulse Ox O2 Delivery O2 Flow Rate FiO2 11/22/17 08:33 91 Nasal Cannula 0.5 11/22/17 08:00 133/98 (110) 11/22/17 07:37 98.4 66 18 Intake and Output 11/23/17 07:00 Intake Total 240 ml Output Total 300 ml Balance -60 ml Intake Oral 240 ml Output Urine Total 300 ml General Appearance: Alert, Awake, No Acute Distress Neuro: No Gross deficits Eyes: PERRLA ENT: Normal Neck: No Masses Cardiovascular: Normal Rhythm & Peripheral Pulses Respiratory: No Respiratory Distress Chest: No Tenderness GI: Soft and Non-Tender Lymph: Cervical Nodes Benign Musculoskeletal: No Weakness/Pain (L arm in sling) Extremities: Soft and Non Tender, Warm Integumentary: Skin Intact without Lesion / Mass Psych: Alert & Oriented X3 Result Diagram: 11/22/17 0520 11/22/17 0520 Assessment and Plan Problems: (1) S/p reverse total shoulder arthroplasty Status: Acute Assessment & Plan: The patient is doing well postoperatively. See Dr. Ribeiro's notes for complete details regarding the procedure. (2) Hyponatremia Assessment & Plan: Na 130 this am, per pt and nursing drank several liters of fluid since surgery. Suspect this is 2/2 polydipsia, discussed drinking to thirst and not target volume of fluid. Asymptomatic, recommend follow up outpt to document improvement/resolution. (3) Chronic pain syndrome Status: Chronic Assessment & Plan: The patient was on methadone and oxycodone which was stopped a week ago by his pain clinic. He was given clonidine 0.1mg tabs, 1/2 to one po tid and Ativan 0.5mg tabs qid for withdrawal. Dr. Ribeiro states he was instructed to give the patient pain meds as he would usually prescribe postoperatively. Patient clonidine and Ativan stopped as now on narcotic Rx again post operatively. (4) Type II diabetes mellitus Status: Chronic Assessment & Plan: Per pre-op clearance note, his most recent HgA1c was 6.9. (5) BRYAN (obstructive sleep apnea) Status: Chronic Assessment & Plan: On CPAP plus 3L O2 at home. Has machine with him. (6) HTN (hypertension) Status: Chronic Assessment & Plan: Not currently on antihypertensives to specifically treat HTN. He was give a 7 day course of clonidine 0.1mg tid for withdrawal symptoms by Dr. Resendiz. (7) CKD (chronic kidney disease) Status: Chronic (8) COPD (chronic obstructive pulmonary disease) Status: Chronic Assessment & Plan: He uses an albuterol MDI prn. (9) Depression Status: Chronic Assessment & Plan: Continue venlafaxine XR 150mg daily as well as Prozac 60mg ( 40mg cap + 20mg cap) daily. (10) Hyperlipidemia Status: Chronic Assessment & Plan: Continue lovastatin 20mg at HS. (11) Obesity Status: Chronic Assessment & Plan: The patient weighed over 600 pounds but has lost weight after gastric bypass surgery. Heart Failure Ejection Fraction %: 59 NYHA Class: II Is Patient on MAHAD Inhibitor?: Yes Is Patient on Beta Olga?: No Admission Weight: 326 Exam Sepsis Risk: No Definite Risk Problem Qualifiers (1) S/p reverse total shoulder arthroplasty: Laterality: left Qualified Codes: Z96.612 - Presence of left artificial shoulder joint (2) CKD (chronic kidney disease): Chronic kidney disease stage: stage 3 (moderate) Qualified Codes: N18.3 - Chronic kidney disease, stage 3 (moderate) (3) Depression: Depression Type: depression during (4) Obesity: Serious obesity comorbidity presence: with serious comorbidity Body mass index : BMI 40.0-44.9 DERIK RAYMOND DO Nov 22, 2017 11:06
== END 2017-11-22 10:35 | disposition home or self-care (01) | DRG 483 ==
LOC: OR 01:37 → MED 15:32
PROVIDERS: ADMIT Orthopaedic Surgery Hand Surgery; ATTEND Orthopaedic Surgery Hand Surgery
PROC: 0RRK00Z Replacement of Left Shoulder Joint with Reverse Ball and Socket Synthetic Substitute, Open Approach (ICD-10-PCS; principal; 2017-11-21 11:44)
PROC: 3E0U33Z Introduction of Anti-inflammatory into Joints, Percutaneous Approach (ICD-10-PCS; 2017-11-21 11:44)
DX: M12.512 Traumatic arthropathy, left shoulder (principal); Z68.41 Body mass index [BMI] 40.0-44.9, adult; E87.1 Hypo-osmolality and hyponatremia; I12.9 Hypertensive chronic kidney disease with stage 1 through stage 4 chronic kidney disease, or unspecified chronic kidney disease; N18.3 Chronic kidney disease, stage 3 (moderate); G47.33 Obstructive sleep apnea (adult) (pediatric); J44.9 Chronic obstructive pulmonary disease, unspecified; N20.0 Calculus of kidney; E66.9 Obesity, unspecified; F41.8 Other specified anxiety disorders; E78.5 Hyperlipidemia, unspecified; E11.40 Type 2 diabetes mellitus with diabetic neuropathy, unspecified; G89.4 Chronic pain syndrome; M19.071 Primary osteoarthritis, right ankle and foot; I25.10 Atherosclerotic heart disease of native coronary artery without angina pectoris; K21.9 Gastro-esophageal reflux disease without esophagitis; E11.22 Type 2 diabetes mellitus with diabetic chronic kidney disease; Z99.81 Dependence on supplemental oxygen; Z98.84 Bariatric surgery status; Z96.652 Presence of left artificial knee joint
CPT/HCPCS: 36415; 36416; 82310; 82374; 82435; 82565; 82947; 82948; 84132; 84295; 84520; 85014; 85018; 85025; 85610; 86850; 86900; 86901; 97165; J0171; J0702; J0735; J1030; J1100; J1885; J2250; J2405; J2704; J2795; J3010; J3370; J3490; J3535; J7050; J7060

== ENCOUNTER 2018-05-17 09:25 | Emergency (ER) | payer MEDICARE ==
[2014-03-14 16:40] VITALS: Wt 141.5 kg
[~2018-05-17 09:25] MED LIST changes: +ALB18R INH; +CLON-327 PO; +LORA-630 PO; +NALO4SPR
--- NOTE | 2018-05-17 09:28 | ER Report ---
History and Physical Time Seen By MD: 09:28 HPI/ROS Fall x 2 last week after slipping on the ice. Both times fell onto right hip. Now able to ambulate, but with pain in his right groin and right hip. No fever/chills. No other trauma or recent manipulation of his hip. No anti- coagulation medications. No LOC. No pain in neck. Remainder of the 14 system rev: Yes Allergies: Coded Allergies: codeine (Verified Allergy, Mild, RASH, 09/15/17) latex (Verified Allergy, Unknown, 09/15/17) PT STATES THEY TOLD HIM LAST TIME HE WAS HERE THAT HE WAS ALLERGIC TO IT. lactose (Verified Adverse Reaction, Unknown, 09/15/17) Home Meds Active Scripts Venlafaxine Hcl (EFFEXOR XR) 150 Mg Cap.er.24h, 150 MG PO QDAY, #30 Do not take until see Shantel Escalante [employer] T[employer] E[employer]IC OPERATOR to discuss whether to stay on this medication. Prov:MADHU SAAEVDRA MD 03/16/14 Reported Medications Albuterol Sulfate (VENTOLIN HFA) 18 Gm Inh, 2 PUFF INH Q4-6H, INH 11/21/17 Fluoxetine Hcl (PROZAC) 40 Mg Capsule, 40 MG PO QDAY, CAPSULE Take with a 20mg cap daily 11/21/17 Tamsulosin Hcl (TAMSULOSIN HCL) 0.4 Mg Cap.er.24h, 0.4 MG PO DAILY, CAP 11/14/17 Fluoxetine Hcl (FLUOXETINE HCL) 20 Mg Capsule, 1 TAB PO DAILY, #90 02/09/16 Lovastatin (Mevacor) 20 Mg Tab, 20 MG PO QHS, 0 Refills 05/17/11 Discontinued Reported Medications Oxycodone Hcl (OXYCODONE HCL) 5 Mg Capsule, 5-10 MG PO 4-6HR for pain, #40 CAPSULE 11/22/17 Naloxone HCl (Narcan) 4 Mg/Actuation [place], 1 SPRAY NA PRN PRN for narcotic overdose 11/21/17 Reviewed Nurses Notes: Yes Old Medical Records Reviewed: Yes Hx Smoking: Yes (OCC CIGAR SMOKER) Smoking Status: Former Smoker Exposure to Second Hand Smoke?: No Hx Substance Use Disorder: No (SOBER X 5 YRS, POT) Hx Alcohol Use: No Constitutional Vital Sign - Last 24 Hours 05/17/18 09:29 O2 Delivery Room Air Physical Exam General Appearance: The patient is alert, has no immediate need for airway protection and no current signs of toxicity. Eyes: Pupils equal and round no injection. Respiratory: Chest is non tender, lungs are clear to auscultation. Cardiac: regular rate and rhythm Gastrointestinal: Abdomen is soft and non tender, no masses, bowel sounds normal. Musculoskeletal: TTP of the right thigh in multiple regions. Minimal bony TTP. Full ROM with moderate amount of pain. n/v in tact, TTP of the right psoas muscle : No hernia or testicle TTP Neck: Neck is supple and non tender. Skin: No rashes or lesions. DIFFERENTIAL DIAGNOSIS: After history and physical exam differential diagnosis was considered for fracture, dislocation, septic joint, other injuries Medical Decision Making Data Points Result Diagram: 05/17/18 1107 05/17/18 1107 Laboratory Hematology Test 05/17/18 11:07 05/17/18 11:24 Red Blood Count 5.11 M/uL (4.00-5.60) Mean Corpuscular Volume 81.6 fL (80.0-96.0) Mean Corpuscular Hemoglobin 27.8 pg (26.0-33.0) Mean Corpuscular Hemoglobin Concent 34.1 g/dL (32.0-36.0) Red Cell Distribution Width 17.9 % (11.5-14.5) Mean Platelet Volume 7.5 fL (7.2-11.1) Neutrophils (%) (Auto) 64.0 % (39.4-72.5) Lymphocytes (%) (Auto) 26.0 % (17.6-49.6) Monocytes (%) (Auto) 7.0 % (4.1-12.4) Eosinophils (%) (Auto) 2.3 % (0.4-6.7) Basophils (%) (Auto) 0.7 % (0.3-1.4) Nucleated RBC Relative Count (auto) 0.1 /100WBC Neutrophils # (Auto) 2.8 K/uL (2.0-7.4) Lymphocytes # (Auto) 1.1 K/uL (1.3-3.6) Monocytes # (Auto) 0.3 K/uL (0.3-1.0) Eosinophils # (Auto) 0.1 K/uL (0.0-0.5) Basophils # (Auto) 0.0 K/uL (0.0-0.1) Nucleated RBC Absolute Count (auto) 0.01 K/uL Erythrocyte Sedimentation Rate 4 mm/HOUR (0-20) Sodium Level 138 mmol/L (137-145) Potassium Level 4.4 mmol/L (3.5-5.0) Chloride Level 108 mmol/L (98-107) Carbon Dioxide Level 26 mmol/L (22-30) Blood Urea Nitrogen 13 mg/dl (9-21) Creatinine 1.20 mg/dl (0.66-1.25) Glomerular Filtration Rate Calc > 60.0 Random Glucose 68 mg/dl (75-110) Calcium Level 8.7 mg/dl (8.4-10.2) Total Bilirubin 0.7 mg/dl (0.2-1.3) Aspartate Amino Transf (AST/SGOT) 21 U/L (0-35) Alanine Aminotransferase (ALT/SGPT) 24 U/L (0-56) Alkaline Phosphatase 128 U/L (0-126) C-Reactive Protein 1.1 mg/dl (<1.0) Total Protein 6.4 g/dl (6.3-8.2) Albumin 3.4 g/dl (3.5-5.0) Urine Color [place] Urine Clarity Clear Urine pH 5.0 pH (4.8-9.5) Urine Specific [place] 1.024 Urine Protein 30 mg/dL (NEGATIVE) Urine Glucose (UA) Negative mg/dL (NEGATIVE) Urine Ketones Trace mg/dL (NEGATIVE) Urine Blood Negative (NEGATIVE) Urine Nitrite Negative (NEGATIVE) Urine Bilirubin Small (NEGATIVE) Urine Urobilinogen 4.0 mg/dL (0.2-1.9) Urine Leukocyte Esterase Negative (NEGATIVE) Urine RBC None /HPF (0-2/HPF) Urine WBC 3 /HPF (0-5/HPF) Urine Squamous Epithelial Cells Few /LPF (</=FEW) Urine Bacteria Negative /HPF (NONE-FEW) Urine Hyaline Casts Many /LPF (NONE-FEW) Urine Mucus Few /HPF (NONE-FEW) Chemistry Test 05/17/18 11:07 05/17/18 11:24 White Blood Count 4.4 k/uL (4.5-11.0) Red Blood Count 5.11 M/uL (4.00-5.60) Hemoglobin 14.2 g/dL (14.0-18.0) Hematocrit 41.7 % (42.0-52.0) Mean Corpuscular Volume 81.6 fL (80.0-96.0) Mean Corpuscular Hemoglobin 27.8 pg (26.0-33.0) Mean Corpuscular Hemoglobin Concent 34.1 g/dL (32.0-36.0) Red Cell Distribution Width 17.9 % (11.5-14.5) Platelet Count 122 K/uL (150-450) Mean Platelet Volume 7.5 fL (7.2-11.1) Neutrophils (%) (Auto) 64.0 % (39.4-72.5) Lymphocytes (%) (Auto) 26.0 % (17.6-49.6) Monocytes (%) (Auto) 7.0 % (4.1-12.4) Eosinophils (%) (Auto) 2.3 % (0.4-6.7) Basophils (%) (Auto) 0.7 % (0.3-1.4) Nucleated RBC Relative Count (auto) 0.1 /100WBC Neutrophils # (Auto) 2.8 K/uL (2.0-7.4) Lymphocytes # (Auto) 1.1 K/uL (1.3-3.6) Monocytes # (Auto) 0.3 K/uL (0.3-1.0) Eosinophils # (Auto) 0.1 K/uL (0.0-0.5) Basophils # (Auto) 0.0 K/uL (0.0-0.1) Nucleated RBC Absolute Count (auto) 0.01 K/uL Erythrocyte Sedimentation Rate 4 mm/HOUR (0-20) Glomerular Filtration Rate Calc > 60.0 Calcium Level 8.7 mg/dl (8.4-10.2) Total Bilirubin 0.7 mg/dl (0.2-1.3) Aspartate Amino Transf (AST/SGOT) 21 U/L (0-35) Alanine Aminotransferase (ALT/SGPT) 24 U/L (0-56) Alkaline Phosphatase 128 U/L (0-126) C-Reactive Protein 1.1 mg/dl (<1.0) Total Protein 6.4 g/dl (6.3-8.2) Albumin 3.4 g/dl (3.5-5.0) Urine Color [place] Urine Clarity Clear Urine pH 5.0 pH (4.8-9.5) Urine Specific [place] 1.024 Urine Protein 30 mg/dL (NEGATIVE) Urine Glucose (UA) Negative mg/dL (NEGATIVE) Urine Ketones Trace mg/dL (NEGATIVE) Urine Blood Negative (NEGATIVE) Urine Nitrite Negative (NEGATIVE) Urine Bilirubin Small (NEGATIVE) Urine Urobilinogen 4.0 mg/dL (0.2-1.9) Urine Leukocyte Esterase Negative (NEGATIVE) Urine RBC None /HPF (0-2/HPF) Urine WBC 3 /HPF (0-5/HPF) Urine Squamous Epithelial Cells Few /LPF (</=FEW) Urine Bacteria Negative /HPF (NONE-FEW) Urine Hyaline Casts Many /LPF (NONE-FEW) Urine Mucus Few /HPF (NONE-FEW) Urinalysis Test 05/17/18 11:24 Urine Color [place] Urine Clarity Clear Urine pH 5.0 pH (4.8-9.5) Urine Specific [place] 1.024 Urine Protein 30 mg/dL (NEGATIVE) Urine Glucose (UA) Negative mg/dL (NEGATIVE) Urine Ketones Trace mg/dL (NEGATIVE) Urine Blood Negative (NEGATIVE) Urine Nitrite Negative (NEGATIVE) Urine Bilirubin Small (NEGATIVE) Urine Urobilinogen 4.0 mg/dL (0.2-1.9) Urine Leukocyte Esterase Negative (NEGATIVE) Urine RBC None /HPF (0-2/HPF) Urine WBC 3 /HPF (0-5/HPF) Urine Squamous Epithelial Cells Few /LPF (</=FEW) Urine Bacteria Negative /HPF (NONE-FEW) Urine Hyaline Casts Many /LPF (NONE-FEW) Urine Mucus Few /HPF (NONE-FEW) EKG/Imaging Imaging Results: CT scan of the right hip was obtained. The results of the study are no fracture, but with effusion of the right hip joint and osteo. The study was read by the radiologist. I viewed the images myself on the PACS system. ED Course/Re-evaluation ED Course Fall onto right hip 2 times last week. ABle to ambulate with pain. No fracture on xray or CT scan, but with right hip effusion. Afebrile, normal labs, and has other reasons for effusion such as osteoarthritis. Spoke with Dr. Caicedo who agrees that effusion not concerning for septic joint given history/physical, and labs. Will not need joint aspiration at this time. Will have him follow up with PBJ tomorrow. Decision to Disposition Date: May 17, 2018 Decision to Disposition Time: 13:01 Depart Departure Latest Vital Signs Vital Signs Date Time Temp Pulse Resp B/P (MAP) Pulse Ox O2 Delivery O2 Flow Rate FiO2 05/17/18 09:29 Room Air Core Temperature (Celsius): 36.5 Impression: Primary Impression: Contusion, hip Condition: Improved Disposition: HOME OR SELF-CARE Referrals: JORDAN CAICEDO MD Patient Instructions: Hip Contusion (ED) Problem Qualifiers Primary Impression: Contusion, hip Encounter type: initial encounter Laterality: right Qualified Codes: S 70.01XA - Contusion of right hip, initial encounter ANSHUL NIÑO MD May 17, 2018 09:28
[2018-05-17] MEDS ORDERED: MORPHINE 4 MG/ML SDV IVP ONE (10:35)
[2018-05-17] MEDS ORDERED: ONDANSETRON 4 MG/2 ML VIAL IVP ONE (10:35)
--- NOTE | 2018-05-17 11:09 | RADIOLOGY IMAGING REPORT ---
FACILITY: [facility] PATIENT NAME: Eleno Nunes : 1960 MR: [id number] V: [id number] EXAM DATE: ORDERING PHYSICIAN: ANSHUL NIÑO TECHNOLOGIST: Location: [facility] Patient: Eleno Nunes : 1960 Visit/Account:[id number] Date of Sevice: 05/17/2018 HIP RIGHT HISTORY: fall Pelvis and right hip films. FINDINGS: Study demonstrates an intact pelvic girdle. No fractures noted. Both hip joints well-maintained. Spec ifically the right hip demonstrates no acute fracture of the visualized femoral neck or proximal femu r. There is significant lateral joint space narrowing change of the right hip joint with subchondral sclerosis and small lateralizing osteophyte from the superior lateral aspect of acetabulum. Both hip joints demonstrates cam acetabular impingement morphology. DJD changes at the L5-S1 level.. IMPRESSION: 1. No acute bony pathology. Specifically no obvious right hip fracture. 2. Advanced degenerative changes of the right hip joint with associated cam acetabular impingement mo rphology. 3. Moderate joint space narrowing of the left hip. Report Dictated By: Anton Ngo MD at 05/17/2018 11:02 AM Report E-Signed By: Anton Ngo MD at 05/17/2018 11:05 AM [id number]
--- NOTE | 2018-05-17 12:00 | RADIOLOGY IMAGING REPORT ---
FACILITY: [facility] PATIENT NAME: Eleno Nunes : 1960 MR: [id number] V: [id number] EXAM DATE: ORDERING PHYSICIAN: ANSHUL NIÑO TECHNOLOGIST: Location: [facility] Patient: Eleno Nunes : 1960 Visit/Account:[id number] Date of Sevice: 05/17/2018 CT LOWER EXT W/O RT History: 58-year-old male with right hip pain. Evaluate for possible right hip fracture.. Technique: CT images were obtained through the right hip without contrast injection. Coronal and sagittal reformations were then created. One of the following dose optimization techniques was utilized in the performance of this exam: Autom ated exposure control; adjustment of the mA and/or kV according to the patient's size; or use of an i terative reconstruction technique. Specific details can be referenced in the facility's radiology C T exam operational policy. Comparison study: Right hip x-ray May 17, 2018. Findings: Bones of the right hip. There is no finding of a fracture involving the right hip. There are prominen t findings of superolateral joint space now with subchondral sclerosis and subchondral cyst formation . These findings are consistent with osteoarthrosis. There is no fracture of the pubic ramus fracture and the visualized portions of the pelvis are unrema rkable. Soft tissues: There is a joint effusion involving the right hip. The fluid could be related to the pr eviously described osteoarthritic changes, but septic arthritis of the right hip cannot be excluded. Right hip musculature. There is no finding of a mass or hematoma in the right hip musculature. The ri t iliopsoas tendon shows no finding of bursitis. Right pelvis: The visualized portions of the right pelvis are unremarkable. Vascular structures are u nremarkable. Sacrum: There is no finding of a sacral insufficiency fracture. IMPRESSION: 1. Prominent findings of osteoarthrosis involving the right hip with loss of the superolateral space, bony proliferation, and subchondral sclerosis. 2. There is a right hip effusion. This could be related to the patient's osteoarthrosis but alternati ve etiology such as infection cannot be excluded. Results were called to ANSHUL NIÑO M.D. At 05/17/2018 11:56 AM. Report Dictated By: Claude Xavier MD at 05/17/2018 11:49 AM Report E-Signed By: Claude Xavier MD at 05/17/2018 11:56 AM [id number]
[2018-05-17 12:08] LABS: PLATELET COUNT, AUTOMATED 122 K/uL (150-450)
[2018-05-17 13:35] VITALS: BP 142/85
== END 2018-05-17 13:47 | disposition home or self-care (01) ==
LOC: ER 09:45
DX: S70.01XA Contusion of right hip, initial encounter (principal)
CPT/HCPCS: 73502; 73700; 81001; 85025; 85651; 86140; 96374; 96375; 99284; J2270; J2405; 82040; 82247; 82310; 82374; 82435; 82565; 82947; 84075; 84132; 84155; 84295; 84450; 84460; 84520

== ENCOUNTER → 2018-07-06 | Outpatient (CLI) | payer MEDICARE ==
[2014-03-14 16:40] VITALS: BMI 45.5
[2018-07-06 08:02] LABS: PLATELET COUNT, AUTOMATED 115 K/uL (150-450)
== END ==
LOC: LAB 07:39
PROVIDERS: ATTEND Nurse Practitioner Psychiatric/Mental Health
DX: N40.2 Nodular prostate without lower urinary tract symptoms (principal); E78.5 Hyperlipidemia, unspecified; I10 Essential (primary) hypertension; E87.5 Hyperkalemia; G90.09 Other idiopathic peripheral autonomic neuropathy; R60.9 Edema, unspecified
CPT/HCPCS: 36415; 82040; 82247; 82310; 82374; 82435; 82465; 82565; 82947; 83718; 84075; 84132; 84153; 84155; 84295; 84450; 84460; 84478; 84520; 85025

== ENCOUNTER 2018-07-13 15:46 | Emergency (ER) | payer MEDICARE ==
[2014-03-14 16:40] VITALS: Wt 141.7 kg
--- NOTE | 2018-07-13 15:58 | ER Report ---
History and Physical Time Seen By MD: 15:57 Hx. of Stated Complaint: patient reports left hip pain that has been going on since April. Was in PT with [facility] for the last week and only made it worse HPI/ROS CHIEF COMPLAINT: R hip pain HISTORY OF PRESENT ILLNESS: Pt her for evaluation of right hip pain. PT statse that he started with r hip pain in April. Pt was seen in ED 05/17 and had a work up which included xray and CT of hip. PT was sent to Orthopedics. Pt was sent for 6 weeks of water therapy by [facility]. Pt statse that it is not helping. Pt was just seen there this past week and states "they are not helping the pain". Pt came back to ed for further management. Pt c/o of pain in right hip that radiates to mid groin as well as posterior thigh. Pt denies any trauma. Pt used to walk with a cane but is now starting to use a walker this week. REVIEW OF SYSTEMS: Constitutional: No fever, no chills. Eyes: No discharge. ENT: No sore throat. Cardiovascular: No chest pain, no palpitations. Respiratory: No cough, no shortness of breath. Gastrointestinal: No abdominal pain, no vomiting. Genitourinary: No hematuria. Musculoskeletal: No back pain. + r hip pain Skin: No rashes. Neurological: No headache. Allergies: Coded Allergies: codeine (Verified Allergy, Mild, RASH, 09/15/17) latex (Verified Allergy, Unknown, 09/15/17) PT STATES THEY TOLD HIM LAST TIME HE WAS HERE THAT HE WAS ALLERGIC TO IT. lactose (Verified Adverse Reaction, Unknown, 09/15/17) Home Meds Active Scripts Oxycodone Hcl/Acetaminophen (OXYCODONE-ACETAMINOPHEN 5-325) 1 Each Tablet, 1-2 EACH PO Q4-6H PRN for MODERATE PAIN, #20 TAB Prov:WALTER HEATH V DO 07/13/18 Venlafaxine Hcl (EFFEXOR XR) 150 Mg Cap.er.24h, 150 MG PO QDAY, #30 Do not take until see Steve Escalante [employer] ELECT[employer]IC TECHNICIAN to discuss whether to stay on this medication. Prov:MADHU SAAVEDRA MD 03/16/14 Reported Medications Albuterol Sulfate (VENTOLIN HFA) 18 Gm Inh, 2 PUFF INH Q4-6H, INH 8/3/18 Fluoxetine Hcl (PROZAC) 40 Mg Capsule, 40 MG PO QDAY, CAPSULE Take with a 20mg cap daily 11/21/17 Tamsulosin Hcl (TAMSULOSIN HCL) 0.4 Mg Cap.er.24h, 0.4 MG PO DAILY, CAP 11/14/17 Fluoxetine Hcl (FLUOXETINE HCL) 20 Mg Capsule, 1 TAB PO DAILY, #90 02/09/16 Lovastatin (Mevacor) 20 Mg Tab, 20 MG PO QHS, 0 Refills 05/17/11 Past Medical/Surgical History Pmhx: chronic pain (used to be on methadone and oxycodone and followed by pain management), htn, janelle, dm, copd, ckd, obesity, hyperlipid, osteoarthritis r hip Pshx: left shoulder Reviewed Nurses Notes: Yes Old Medical Records Reviewed: Yes Hx Smoking: Yes (OCC CIGAR SMOKER) Smoking Status: Former Smoker Exposure to Second Hand Smoke?: No Hx Substance Use Disorder: No (SOBER X 10 YRS, POT) Hx Alcohol Use: No Constitutional Vital Sign - Last 24 Hours 07/13/18 15:51 Temp 97.3 Pulse 84 Resp 20 Pulse Ox 89 O2 Delivery Room Air Physical Exam General Appearance: The patient is alert, has no immediate need for airway protection and no signs of toxicity. Eyes: Pupils equal and round no pallor or injection, EOMI ENT: no pharyngeal erythema or exudates, Mucous membranes are moist Respiratory: There are no retractions, lungs are clear to auscultation. Cardiovascular: Regular rate and rhythm. pulses are equal and symmetrical Gastrointestinal: Abdomen is soft and non tender, no masses, bowel sounds normal, no guarding, no rigidity or rebound Neurological: Cranial nerves II-XII grossly intact, no sensory or motor loss Skin: Warm and dry, no rashes. Musculoskeletal: Neck is supple non tender, no vertebral tenderness Extremities are nontender, nonswollen and have full range of motion. DIFFERENTIAL DIAGNOSIS: After history and physical exam differential diagnosis was considered for osteoarthritis, sciatica, subconfral sclerosis Medical Decision Making ED Course/Re-evaluation ED Course Pt has had no new trauma. no fevers. Pts symptoms started in April. Will call orthopedics to discuss what they would like us to do to help the patient 07/13/2018 4:36:36 pm Page out to Dr. Lombardi 07/13/2018 4:55:[address] Lombardi. Pt is seen by Dr. Rock in the office. Recommend I give a small amount of pain medication to hold him until he can be reevaluated by Phyll[facility]. May require replacement. 07/13/2018 4:56:03 pm Pt is no longer followed by pain clinic. PT states he is okay with percocet. Pt states he will call Phyllis in am.Told to return for any new symptoms (fever, trauma) Decision to Disposition Date: Jul 13, 2018 Decision to Disposition Time: 16:51 Depart Departure Latest Vital Signs Vital Signs Date Time Temp Pulse Resp B/P (MAP) Pulse Ox O2 Delivery O2 Flow Rate FiO2 07/13/18 15:51 97.3 84 20 89 Room Air Core Temperature (Celsius): 36.5 Impression: Primary Impression: Hip pain, right Condition: Condition Unchanged Disposition: HOME OR SELF-CARE Referrals: STEVE ESCALANTE (PCP) EDMUNDO ROCK MD 2 Days New Scripts Oxycodone Hcl/Acetaminophen (OXYCODONE-ACETAMINOPHEN 5-325) 1 Each Tablet 1-2 EACH PO Q4-6H PRN for MODERATE PAIN, #20 TAB Prov: WALTER HEATH DO 07/13/18 Patient Instructions: Hip Pain (ED), Osteoarthritis (ED) Additional Instructions: I spoke with Dr. Lombardi from [facility]. He would like you to call the office tomorrow to make arrangements with Dr. Rock to discuss further treatment or possible surgery on your hip. Use your walker for support. Percocet script was sent to [facility]. Return as needed. WALTER HEATH DO Jul 13, 2018 15:58
[2018-07-13] MEDS ORDERED: OXYC-373 PO (16:53)
[2018-07-13 16:56] VITALS: BP 132/82
== END 2018-07-13 17:09 | disposition home or self-care (01) ==
LOC: ER 16:01
DX: M25.551 Pain in right hip (principal)
CPT/HCPCS: 99281

== ENCOUNTER 2018-07-18 10:46 | Emergency (ER) | payer MEDICARE ==
[2014-03-14 16:40] VITALS: Wt 132.6 kg
[~2018-07-18 10:46] MED LIST changes: +OXYC-373 PO
--- NOTE | 2018-07-18 10:56 | ER Report ---
History and Physical Time Seen By MD: 10:56 HPI/ROS CHIEF COMPLAINT: Right hip and right groin pain HISTORY OF PRESENT ILLNESS: This is a 58-year-old male presents to the emergency department for right hip and groin pain. The patient was seen and evaluated in the emergency department 5 days ago for the same thing, was [facility] Patient states that he did follow-up and will have another follow-up this coming Friday. He was also given 20 oxycodone he does have a history of narcotic and benzodiazepine abuse. He denies any injury since however he states that he did slip and rotate his right leg when he came in last time but no falls or trauma. No nausea or vomiting. No chest pain or shortness breath. No dysuria. No rashes. REVIEW OF SYSTEMS: Constitutional: No fever, no chills. Eyes: No discharge. ENT: No sore throat. Cardiovascular: No chest pain, no palpitations. Respiratory: No cough, no shortness of breath. Gastrointestinal: No abdominal pain, no vomiting. Genitourinary: No hematuria. Musculoskeletal: As above. Skin: No rashes. Neurological: No headache. Allergies: Coded Allergies: codeine (Verified Allergy, Mild, RASH, 09/15/17) ceftriaxone (Verified Allergy, Unknown, 07/18/18) latex (Verified Allergy, Unknown, 09/15/17) PT STATES THEY TOLD HIM LAST TIME HE WAS HERE THAT HE WAS ALLERGIC TO IT. lactose (Verified Adverse Reaction, Unknown, 09/15/17) Home Meds Active Scripts Venlafaxine Hcl (EFFEXOR XR) 150 Mg Cap.er.24h, 150 MG PO QDAY, #30 Do not take until see Steve Escalante [facility] to discuss whether to stay on this medication. Prov:MADHU SAAVEDRA MD 03/16/14 Reported Medications Methocarbamol (ROBAXIN) 500 Mg Tablet, 1500 MG PO TID 07/18/18 Albuterol Sulfate (VENTOLIN HFA) 18 Gm Inh, 2 PUFF INH Q4-6H, INH 11/21/17 Fluoxetine Hcl (PROZAC) 40 Mg Capsule, 40 MG PO QDAY, CAPSULE Take with a 20mg cap daily 11/21/17 Tamsulosin Hcl (TAMSULOSIN HCL) 0.4 Mg Cap.er.24h, 0.4 MG PO DAILY, CAP 11/14/17 Fluoxetine Hcl (FLUOXETINE HCL) 20 Mg Capsule, 1 TAB PO DAILY, #90 02/09/16 Lovastatin (Mevacor) 20 Mg Tab, 20 MG PO QHS, 0 Refills 05/17/11 Discontinued Scripts Oxycodone Hcl/Acetaminophen (OXYCODONE-ACETAMINOPHEN 5-325) 1 Each Tablet, 1-2 EACH PO Q4-6H PRN for MODERATE PAIN, #20 TAB Prov:WALTER HEATH DO 07/13/18 Past Medical/Surgical History Patient has a past medical and surgical history of angina, hypertension, hypercholesterolemia, emphysema, COPD, uses BiPAP at night, diverticulitis, GERD, hiatal hernia, with peak surgeries, multiple orthopedic fractures, chronic back pain, parotid stones removed, wears glasses, history of alcohol and narcotic abuse, gastric bypass, left ankle surgery rotator cuff surgery right shoulder rotator cuff repair, tumor on left chest excised. Reviewed Nurses Notes: Yes Hx Smoking: Yes (OCC CIGAR SMOKER) Smoking Status: Former Smoker Exposure to Second Hand Smoke?: No Hx Substance Use Disorder: No (SOBER X 10 YRS, POT) Hx Alcohol Use: No Constitutional Vital Sign - Last 24 Hours 07/18/18 07/18/18 07/18/18 07/18/18 10:46 10:52 10:54 11:00 Temp 97.9 Pulse ??? 86 Resp 18 B/P (MAP) 127/82 127/82 (97) 99/76 (84) Pulse Ox 91 O2 Delivery Room Air 07/18/18 07/18/18 07/18/18 07/18/18 11:01 11:16 11:30 11:31 Pulse 82 82 ??? B/P (MAP) ???/??? (1665) Pulse Ox 94 93 07/18/18 07/18/18 07/18/18 07/18/18 11:46 12:00 12:01 12:16 Pulse 84 70 81 B/P (MAP) 124/76 (92) Pulse Ox 91 95 94 07/18/18 07/18/18 12:30 12:31 Pulse 72 B/P (MAP) 108/72 (84) Pulse Ox 90 Physical Exam General Appearance: The patient is alert, has no immediate need for airway protection and no signs of toxicity. Eyes: Pupils equal and round no pallor or injection. ENT, Mouth: Mucous membranes are moist. Respiratory: There are no retractions, lungs are clear to auscultation. Cardiovascular: Regular rate and rhythm. Gastrointestinal: Abdomen is soft and mild tenderness to the lower abdomen on the right side, hypoactive bowel sounds. No abdominal bruits. Neurological: Alert and oriented eyes 4. Moving all activities. Following all commands. No focal neuro deficits. Skin: Warm and dry, no rashes. Musculoskeletal: Neck is supple non tender. Right groin discomfort with palpation, no deformities, no obvious hernias or unusual findings. Extremities are nontender, nonswollen and have full range of motion. DIFFERENTIAL DIAGNOSIS: After history and physical exam differential diagnosis was considered for arthritis, chronic pain, hernia, subluxation and occult fracture. Medical Decision Making EKG/Imaging Imaging Location: [facility] Patient: Eleno Nunes : 1960 Visit/Account:[id number] Date of Sevice: 07/18/2018 CT ABDOMEN PELVIS W/O CON HISTORY: eval for hernia TECHNIQUE: CT abdomen and pelvis without intravenous contrast. One of the following dose optimization techniques was utilized in the p erformance of this exam: Automated exposure control; adjustment of the mA and/or kV according to the patient's size; or use of an iterative reconstruction technique. Specific details can be referenced in the facility's radiology CT exam operational policy. CONTRAST: None. Please note, lack of IV contrast limits evaluation of solid organs. COMPARISON: CT dated September 15, 2017. FINDINGS: Visualized lung bases: Mild calcification within the visualized LAD. Trace pericardial effusion. Wall thickening within the distal esophagus, nonspecific, possibly related to reflux and/or esophagitis.. Hepatobiliary: Gallbladder surgically absent. Otherwise negative. Spleen: Negative. Adrenals: Negative. Pancreas: Negative. Kidneys/: Negative. GI: There is of mild/moderate circumferential wall thickening in the distal descending and proximal sigmoid colon. Postoperative changes within the stomach without visualized complication. Postoperative changes also noted within small bowel loops in the right hemiabdomen. There is an apparent paper binder clip noted within the ascending colon (best seen on the flag football coach image). No subsequent complication identified. Appendix is not visualized. Vessels/spaces/nodes: Mild nonspecific mesenteric edema, new since prior exam. Bones/soft tissues: Post interval changes within the lower ventral abdominal wall and deep to the left groin from probable prior hernia repair. No residual/recurrent hernia identified. Additional postoperative changes within the midline upper ventral abdominal wall without significant residual/recurrent hernia. Moderate to advanced degenerative changes within the right hip. 10 mm anterolisthesis of L5 on S1 with bilateral L5 pars defects. Moderate degenerative disc disease at L5-S1 and L4-L5. No acute osseous abdomen body. There is focal soft tissue along the right lower quadrant ventral abdominal wall measuring approximately 3.2 x 2.3 cm (image 128 of series 2) not significantly changed in size since the prior exam. Possible mild adjacent inflammation. Fatty atrophy of the gluteus minimus muscles bilaterally. IMPRESSION: 1. No acute findings. 2. Post surgical changes within the ventral abdominal wall and left groin from prior hernia repairs. There is focal soft tissue deep to the right lower quadrant ventral abdominal wall measuring 3.2 x 2.3 cm, not significant change since prior exam, and likely sequela of prior hernia repair. Questionable minimal associated inflammation. 3. Incidental note of an ingested foreign body with appearance of a P per binder clip, noted in the ascending colon. 4. Areas of wall thickening within the distal descending and proximal sigmoid colon, likely related to peristalsis/underdistention. 5. Additional incidental/chronic finding, as above. Results were discussed with JORGE L HOYOS at 07/18/2018 12:02 PM. Report Dictated By: Moris Hernandez MD at 07/18/2018 11:51 AM Report E-Signed By: Moris Hernandez MD at 07/18/2018 12:03 PM WSN:[id number] ED Course/Re-evaluation ED Course The patient was admitted to room. A history and physical were obtained. Differential diagnoses were considered. I did evaluate the [facility], he was given 20 oxycodone on 07/13/2018, 10 travel at all on 07/09/2018, 10 travel at all on 05/25/2018, 10 tramadol on 05/17/2018. With multiple medications noted from 2018 including buprenorphine. The patient's was evaluated, I did recommend a noncontrast CT of his abdomen and pelvis extending through the testicles to evaluate for possible hernia. Patient was agreeable. He was given 60 mg IM Toradol, 60 mg IM [address]flex. The CT showing no hernia no other concerning findings other than a foreign body in the ascending colon. I talked to the patient asked him if he swallowed a foreign bodies recently, patient denies. Patient continued to ask for pain medication I continue to tell him that unfortunately at this time I'm not able to treat him with narcotics. I did consult with Dr. Faye the general surgeon on-call, he evaluated the films and determined that the foreign body was okay, will likely pass, I will have the patient return to radiology on Friday for a KUB which time Dr. Faye will review the image and take appropriate measures if necessary. Patient is aware of this, I did instruct the patient to follow-up with his primary care provider Friday and follow up with [facility] as scheduled this week. Patient expressed understanding was discharged home. Decision to Disposition Date: Jul 18, 2018 Decision to Disposition Time: 12:29 Depart Departure Latest Vital Signs Vital Signs Date Time Temp Pulse Resp B/P (MAP) Pulse Ox O2 Delivery O2 Flow Rate FiO2 07/18/18 12:31 72 90 07/18/18 12:30 108/72 (84) 07/18/18 10:52 97.9 18 Room Air Core Temperature (Celsius): 36.5 Impression: Primary Impression: Foreign body ingestion Additional Impression: Chronic pain of right hip Condition: Improved Disposition: HOME OR SELF-CARE Referrals: STEVE ESCALANTE (PCP) EDMUNDO ROCK MD Patient Instructions: Hip Pain (ED) Additional Instructions: No evidence of hernia on the CT of the abdomen and pelvis, there is however a foreign body noted in the ascending colon, this was reviewed with the general surgeon, please return July 20, for an x-ray of your abdomen. You can take ibuprofen and Tylenol as needed for your aches and pains. Please keep your follow-up appointment with orthopedist Dr. Rock on Friday. Be sure to drink plenty of water. Get plenty of rest. Return to the ER for any concerns or worsening symptoms. Problem Qualifiers Primary Impression: Foreign body ingestion Encounter type: initial encounter Qualified Codes: T18.9XXA - Foreign body of alimentary tract, part unspecified, initial encounter JORGE L HOYOS ENDODONTIST-BC Jul 18, 2018 10:56
[2018-07-18] MEDS ORDERED: METH-542 PO (11:02)
[2018-07-18] MEDS ORDERED: ORPHENADRINE 60MG/2ML INJ IM ONE (11:15)
[2018-07-18] MEDS ORDERED: KETOROLAC 60 MG/2 ML VIAL IM ONE (11:15)
--- NOTE | 2018-07-18 12:08 | RADIOLOGY IMAGING REPORT ---
FACILITY: [facility] [place] PATIENT NAME: Eleno Nunes : 1960 MR: [id number] V: [id number] EXAM DATE: ORDERING PHYSICIAN: JORGE L HOYOS TECHNOLOGIST: Location: [facility] [place] Patient: Eleno Nunes : 1960 Visit/Account:[id number] Date of Sevice: 07/18/2018 CT ABDOMEN PELVIS W/O CON HISTORY: eval for hernia TECHNIQUE: CT abdomen and pelvis without intravenous contrast. One of the following dose optimization techniques was utilized in the performance of this exam: Autom ated exposure control; adjustment of the mA and/or kV according to the patient's size; or use of an i terative reconstruction technique. Specific details can be referenced in the facility's radiology C T exam operational policy. CONTRAST: None. Please note, lack of IV contrast limits evaluation of solid organs. COMPARISON: CT dated September 15, 2017. FINDINGS: Visualized lung bases: Mild calcification within the visualized LAD. Trace pericardial effusion. Wal l thickening within the distal esophagus, nonspecific, possibly related to reflux and/or esophagitis. . Hepatobiliary: Gallbladder surgically absent. Otherwise negative. Spleen: Negative. Adrenals: Negative. Pancreas: Negative. Kidneys/: Negative. GI: There is of mild/moderate circumferential wall thickening in the distal descending and proximal sigmoid colon. Postoperative changes within the stomach without visualized complication. Postoperative changes also noted within small bowel loops in the right hemiabdomen. There is an apparent paper binder clip noted within the ascending colon (best seen on the hotel superintendent image). No subsequent complication identified. Ap pendix is not visualized. Vessels/spaces/nodes: Mild nonspecific mesenteric edema, new since prior exam. Bones/soft tissues: Post interval changes within the lower ventral abdominal wall and deep to the le ft groin from probable prior hernia repair. No residual/recurrent hernia identified. Additional posto perative changes within the midline upper ventral abdominal wall without significant residual/recurre nt hernia. Moderate to advanced degenerative changes within the right hip. 10 mm anterolisthesis of L 5 on S1 with bilateral L5 pars defects. Moderate degenerative disc disease at L5-S1 and L4-L5. No acu te osseous abdomen body. There is focal soft tissue along the right lower quadrant ventral abdominal wall measuring approximately 3.2 x 2.3 cm (image 128 of series 2) not significantly changed in size since the prior exam. Possible mild adjacent inflammation. Fatty atrophy of the gluteus minimus muscles bilaterally. IMPRESSION: 1. No acute findings. 2. Post surgical changes within the ventral abdominal wall and left groin from prior hernia repairs. There is focal soft tissue deep to the right lower quadrant ventral abdominal wall measuring 3.2 x 2. 3 cm, not significant change since prior exam, and likely sequela of prior hernia repair. Questionabl e minimal associated inflammation. 3. Incidental note of an ingested foreign body with appearance of a P per binder clip, noted in the a scending colon. 4. Areas of wall thickening within the distal descending and proximal sigmoid colon, likely related t o peristalsis/underdistention. 5. Additional incidental/chronic finding, as above. Results were discussed with JORGE L HOYOS at 07/18/2018 12:02 PM. Report Dictated By: Moris Hernandez MD at 07/18/2018 11:51 AM Report E-Signed By: Moris Hernandez MD at 07/18/2018 12:03 PM WSN:[id number]
[2018-07-18 12:30] VITALS: BP 108/72
== END 2018-07-18 12:45 | disposition home or self-care (01) ==
LOC: ER 10:58
DX: T18.9XXA Foreign body of alimentary tract, part unspecified, initial encounter (principal); M25.551 Pain in right hip
CPT/HCPCS: 74176; 96372; 99284; J1885; J2360

== ENCOUNTER → 2018-07-20 | Outpatient (CLI) | payer MEDICARE ==
[2014-03-14 16:40] VITALS: BMI 45.5
[~2018-07-20] MED LIST changes: +METH-542 PO
--- NOTE | 2018-07-20 09:59 | RADIOLOGY IMAGING REPORT ---
FACILITY: [facility] [place] PATIENT NAME: Eleno Nunes : 1960 MR: [id number] V: [id number] EXAM DATE: ORDERING PHYSICIAN: JORGE L HOYOS TECHNOLOGIST: Location: [facility] Patient: Eleno Nunes : 1960 Visit/Account:[id number] Date of Sevice: 07/20/2018 KUB SINGLE VIEW ABDOMEN History: Swallowed a metal clip. History of gastric bypass. Comparison study: None. Findings: In the right lower quadrant probably in the small bowel there is a metal clip that likely represents the clip described on the clinical history. There are no dilated loops of large or small bowel to suggest ileus or obstruction. There are surgical clips in right upper quadrant related to prior cholecystectomy. There are prominent findings of osteoarthrosis in the right hip with significant loss of the joint sp kecia. There are mild findings of osteoarthrosis in the left hip. The sacroiliac joints are unremarka ble. IMPRESSION: 1. In the right lower quadrant, probably in the small bowel, there is a metallic clip that likely re presents the ingested foreign body described on the clinical history. 2. Postoperative changes right upper quadrant. 3. Severe osteoarthrosis of the right hip. Report Dictated By: Claude Xavier MD at 07/20/2018 9:38 AM Report E-Signed By: Claude Xavier MD at 07/20/2018 9:40 AM WSN:[id number]
== END ==
LOC: RAD 08:48
PROVIDERS: ATTEND Nurse Practitioner Family
DX: T18.4XXA Foreign body in colon, initial encounter (principal); M16.11 Unilateral primary osteoarthritis, right hip; Z98.890 Other specified postprocedural states
CPT/HCPCS: 74018

== ENCOUNTER → 2018-07-23 | Outpatient (CLI) | payer MEDICARE ==
[2014-03-14 16:40] VITALS: BMI 45.5
[~2018-07-23] MED LIST changes: +CIPR-344 PO; +LISI5TAB25 PO
--- NOTE | 2018-07-23 17:28 | RADIOLOGY IMAGING REPORT ---
FACILITY: [facility] [place] PATIENT NAME: Eleno Nunes : 1960 MR: [id number] V: [id number] EXAM DATE: ORDERING PHYSICIAN: PALMIRA MOTT TECHNOLOGIST: Location: [facility] [place] Patient: Eleno Nunes : 1960 Visit/Account:[id number] Date of Sevice: 07/23/2018 2 VIEWS CHEST INDICATION: pre op clearance COMPARISON: November 03, 2017 FINDINGS: Cardiomediastinal silhouette: Heart size within normal limits. Lungs: There is no focal infiltrate or lobar consolidation. There is no pneumothorax or pleural effusion. Bones and soft tissues: Interval left shoulder arthroplasty IMPRESSION: 1. No acute cardiopulmonary process. Report Dictated By: Jhonny Sloan MD at 07/23/2018 5:23 PM Report E-Signed By: Jhonny Sloan MD at 07/23/2018 5:24 PM WSN:[id number]
== END ==
LOC: RAD 15:59
PROVIDERS: ATTEND Surgery
DX: Z01.818 Encounter for other preprocedural examination (principal); J44.9 Chronic obstructive pulmonary disease, unspecified; G47.30 Sleep apnea, unspecified; Z98.890 Other specified postprocedural states
CPT/HCPCS: 71046

== ENCOUNTER 2018-07-24 02:00 | Day surgery (SDC) | payer MEDICARE ==
[2014-03-14 16:40] VITALS: Ht 180.3 cm; Wt 119.3 kg
[~2018-07-24] VITALS: Ht 180.3 cm; Wt 119.3 kg
[~2018-07-24 02:00] MED LIST changes: -CIPR-344 PO
[2018-07-24] MEDS ORDERED: PROPOFOL EMUL(*) 10MG/ML 20 ML 20 ML ONE ×2 (06:39→11:14)
[2018-07-24 09:29] VITALS: BP 123/93
[2018-07-24] MEDS ORDERED: NORMOSOL R SOLN(*) 1000 ML BAG 1,000 ML IV PRN (09:55)
[2018-07-24] MEDS ORDERED: LIDOCAINE/SOD BICARB 8.4% SYR ID ONE (09:55)
[2018-07-24 11:43] VITALS: BP 83/63
[2018-07-24 11:45] VITALS: BP 90/54
[2018-07-24] MEDS ORDERED: METR-1 PO (12:40)
--- NOTE | 2018-07-24 12:50 | RADIOLOGY IMAGING REPORT ---
FACILITY: [facility] PATIENT NAME: Eleno Nunes : 1960 MR: [id number] V: [id number] EXAM DATE: ORDERING PHYSICIAN: PALMIRA MOTT TECHNOLOGIST: Location: [facility] Patient: Eleno Nunes : 1960 Visit/Account:[id number] Date of Sevice: 07/24/2018 KUB SINGLE VIEW ABDOMEN Indication: foreign body swallowed metal clip Comparison: July 20, 2018 Findings: Cholecystectomy. Previously noted clip is no longer seen. Changes from gastric sleeve. Lower lumba r spondylosis. Impression: 1. Ingested clip no longer seen within the abdomen. It has probably passed Report Dictated By: Jhonny Sloan MD at 07/24/2018 12:43 PM Report E-Signed By: Jhonny Sloan MD at 07/24/2018 12:46 PM WSN:[id number]
[2018-07-24] MEDS ORDERED: CIPR-344 PO (12:53)
--- NOTE | 2018-07-24 12:54 | Short(Outpt) Discharge Summary ---
Discharge Summary Reason for Hosp/Final Diag: (1) Foreign body ingestion Status: Acute Hospital Course & Plan: clip was not seen during colonoscopy. kub did not show clip. 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 Departure Discharge to: Home Discharge Instructions Home Meds Active Scripts Ciprofloxacin Hcl 500 Mg Tab (CIPRO 500 MG TAB) 500 Mg Tablet, 500 MG PO BID, #14 TAB Prov:PALMIRA MOTT 07/24/18 Metronidazole (FLAGYL) 500 Mg Tablet, 500 MG PO Q8H, #20 TAB Prov:PALMIRA MOTT 07/24/18 Venlafaxine Hcl (EFFEXOR XR) 150 Mg Cap.er.24h, 150 MG PO QDAY, #30 Do not take until see Shantel GREENBERGP to discuss whether to stay on this medication. Prov:MADHU SAAVEDRA MD 03/16/14 Reported Medications Lisinopril (LISINOPRIL) 5 Mg Tablet, 1 TAB PO QDAY, TAB 07/23/18 Methocarbamol (ROBAXIN) 500 Mg Tablet, 1500 MG PO TID 07/18/18 Albuterol Sulfate (VENTOLIN HFA) 18 Gm Inh, 2 PUFF INH Q4-6H, INH 11/21/17 Fluoxetine Hcl (PROZAC) 40 Mg Capsule, 40 MG PO QDAY, CAPSULE Take with a 20mg cap daily 11/21/17 Tamsulosin Hcl (TAMSULOSIN HCL) 0.4 Mg Cap.er.24h, 0.4 MG PO DAILY, CAP 11/14/17 Fluoxetine Hcl (FLUOXETINE HCL) 20 Mg Capsule, 1 TAB PO DAILY, #90 02/09/16 Lovastatin (Mevacor) 20 Mg Tab, 20 MG PO QHS, 0 Refills 05/17/11 Discontinued Scripts Oxycodone Hcl/Acetaminophen (OXYCODONE-ACETAMINOPHEN 5-325) 1 Each Tablet, 1-2 EACH PO Q4-6H PRN for MODERATE PAIN, #20 TAB Prov:WALTER HEATH V DO 07/13/18 Diet: Regular Activity: As Tolerated Special Instructions: we will call you to schedule appendectomy. biopsies pending. PALMIRA MOTT Jul 24, 2018 12:54
--- NOTE | 2018-07-24 13:28 | NUR ---
1143 PT ARRIVED TO TX VIA CART IN L LAT POSITION, SLEEPING. VSS. ON 3L NC 1145 BP IMPROVING, DOWN TO 2L NC SATTING VERY WELL 1153 DR. MOTT AT BEDSIDE, DESCRIBED FINDINGS TO THIS RN, ORDERS FOR KUB ONCE PT AWAKE, DOWNT O 1L NC 1200 VSS, PT AWAKE, C/O HIP PAIN, NONE R/T PROCEDURES, REQUESTING COFFEE, WAITING UNTIL AFTER KUB 1205 ORTHOSTATICS STABLE, PT DENIES DIZZINESS 1210 PT UP TO RESTROOM WITH CANE, USES CANE APPROPRIATELY, SLOW MOVING 1230 SBAR TO Argelia MARINO RN 1303 IV OUT PER Argelia MARINO RN 1305 REASSESSED UNREMARKABLE CHANGES, WALKED WITH PT TO ADMITTING ENTRANCE TO WAIT FOR ABRASIVE MIXER HELPER, GOLDEN 1315 D/C INSTRUCTIONS COVERED WITH ABRASIVE MIXER HELPER AND PT, ALL QUESTIONS ANSWERED 1320 PT SELF TRANSFERRED INTO VEHICLE OUTSIDE OF ADMITTING ENTRANCE WITHOUT INCIDENT. ALL BELONGINGS WITH PT.
== END 2018-07-24 13:20 | disposition home or self-care (01) ==
LOC: OR 02:00
PROVIDERS: ATTEND Surgery
DX: R10.31 Right lower quadrant pain (principal); T18.4XXA Foreign body in colon, initial encounter
CPT/HCPCS: 00811; 45380; 74018; 88305; J2704

== ENCOUNTER → 2018-07-27 | Outpatient (CLI) | payer MEDICARE ==
[2014-03-14 16:40] VITALS: BMI 45.5
[~2018-07-27] MED LIST changes: +CIPR-344 PO; +IOPAMIDOL 76% 150 ML INFUS BTL 150 ML ONE
[2018-07-27 10:46] LABS: PLATELET COUNT, AUTOMATED 117 K/uL (150-450)
--- NOTE | 2018-07-27 13:11 | RADIOLOGY IMAGING REPORT ---
FACILITY: [facility] PATIENT NAME: Eleno Nunes : 1960 MR: [id number] V: [id number] EXAM DATE: ORDERING PHYSICIAN: MEG OGLESBY TECHNOLOGIST: [place] [facility] [place]: Eleno Nunes : 1960 Visit/Account:[id number] Date of Sevice: 07/27/2018 CT ABDOMEN PELVIS W/ CON HISTORY: rt lower quadrant pain TECHNIQUE: Following administration of IV contrast contiguous axial images acquired through the abdom en/pelvis. Coronal and sagittal reformatting also performed.Dose Lowering Technique One of the following dose optimization techniques was utilized in the performance of this exam: Autom ated exposure control; adjustment of the mA and/or kV according to the patient's size; or use of an i terative reconstruction technique. Specific details can be referenced in the facility's radiology C T exam operational policy. CONTRAST: 80 mL Isovue-370 COMPARISON: July 18, 2018 FINDINGS: Visualized lung bases: Trace pericardial effusion similar to the prior study. There is irregular th ickening of the distal esophagus Hepatobiliary: There postsurgical changes from a cholecystectomy Spleen: Calcified granuloma Adrenals: Negative. Pancreas: Pancreas appears atrophic. The head the pancreas appears very heterogeneous Kidneys ureters or bladder: Negative. Genitalia: Negative. 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 Numerous collateral vessels are identified in the left upper abdom en Bones/soft tissues: There extensive spondylotic changes lower lumbar spine postoperative changes of the intra-abdominal wall are again seen in addition to a changes suggestive of a prior left inguinal hernia repair. Soft tissue thickening along the anterior right lower quadrant abdominal wall appears similar to the prior study and appears to be chronic Additional findings: None pertinent. 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 There are numerous collateral vessels in the left upper abdomen Pectus appears atrophic. The head of the pancreas appears very heterogeneous pancreatic mass cannot be entirely excluded Postsurgical changes from cholecystectomy, gastric bypass, left inguinal hernia repair and anterior a bdominal wall repair Trace pericardial effusion Irregular thickening of the distal esophagus. This could be related to esophagitis or gastroesophage al reflux disease however clinical correlation needed Results were called to MEG OGLESBY at 07/27/2018 1:06 PM. Report Dictated By: Carline Cardoza MD at 07/27/2018 12:42 PM Report E-Signed By: Carline Cardoza MD at 07/27/2018 1:07 PM WSN:[email or web address]
== END ==
LOC: CT 10:08
PROVIDERS: ATTEND Surgery
DX: R10.31 Right lower quadrant pain (principal); I31.3 Pericardial effusion (noninflammatory); D73.89 Other diseases of spleen; Z90.49 Acquired absence of other specified parts of digestive tract
CPT/HCPCS: 36415; 74177; 83690; 85025; 85651; 86140; Q9967; 82040; 82247; 82310; 82374; 82435; 82565; 82947; 84075; 84132; 84155; 84295; 84450; 84460; 84520

== ENCOUNTER 2018-08-11 00:38 | Day surgery (SDC) | payer MEDICARE ==
[2014-03-14 16:40] VITALS: Ht 180.3 cm; Wt 119.7 kg
[~2018-08-11] VITALS: Ht 180.3 cm; Wt 119.7 kg
[~2018-08-11 00:38] MED LIST changes: -IOPAMIDOL 76% 150 ML INFUS BTL 150 ML ONE; +LISI20TA29 PO; +TRAM-420 PO; +TRAZ100T31 PO
[2018-08-11] MEDS ORDERED: metroNIDAZOLE* 500MG/100ML BAG 100 ML IVPB ONE (12:25)
[2018-08-11] MEDS ORDERED: MIDAZOLAM 2 MG/2 ML VIAL IVP PRN (12:35)
[2018-08-11] MEDS ORDERED: LIDOCAINE/SOD BICARB 8.4% SYR ID ONE (12:35)
[2018-08-11] MEDS ORDERED: NORMOSOL R SOLN(*) 1000 ML BAG 1,000 ML IV PRN (12:35)
[2018-08-11] MEDS ORDERED: LEVOFLOXACIN/D5W 750 MG/150 ML 150 ML IVPB ONE (12:35)
[2018-08-11] MEDS ORDERED: FAMOTIDINE 20 MG TAB PO ONE (12:35)
[2018-08-11 12:58] VITALS: BP 112/81
[2018-08-11] MEDS ORDERED: BUPIVACAINE/EPI 0.5% 50ML VIAL INFIL ONE (13:39)
[2018-08-11] MEDS ORDERED: fentaNYL CITR 100 MCG/2 ML AMP ONE ×2 (14:02→18:15)
[2018-08-11] MEDS ORDERED: KETAMINE HCL 200 MG/20 ML MDV ONE (14:02)
[2018-08-11] MEDS ORDERED: ONDANSETRON 4 MG/2 ML VIAL ONE (14:03)
[2018-08-11] MEDS ORDERED: DEXAMETHASONE SOD PHOS 10MG/ML ONE (14:03)
[2018-08-11] MEDS ORDERED: LIDOCAINE MPF 1% 5 ML VIAL ONE (14:03)
[2018-08-11] MEDS ORDERED: ROCURONIUM BROM 10 MG/ML 10 ML ONE (14:03)
[2018-08-11] MEDS ORDERED: PROPOFOL EMUL(*) 10MG/ML 20 ML 20 ML ONE (14:03)
[2018-08-11] MEDS ORDERED: BENZOCAINE/TETRACAINE/BUTAMBEN ONE (15:08)
[2018-08-11] MEDS ORDERED: LIDOCAINE 2% JELLY 30 ML TUBE ONE (15:09)
[2018-08-11] MEDS ORDERED: ePHEDrine 25 MG/5 ML DISP.SYR IVP ONE (16:01)
[2018-08-11] MEDS ORDERED: NS 0.9% IRRIGATION 1000ML PLCT IR ONE (16:37)
[2018-08-11] MEDS ORDERED: SUGAMMADEX SOD 500 MG/5 ML SDV ONE (17:34)
[2018-08-11] MEDS ORDERED: TRAM-420 PO (18:16)
--- NOTE | 2018-08-11 18:22 | Short(Outpt) Discharge Summary ---
Discharge Summary Reason for Hosp/Final Diag: (1) Right lower quadrant abdominal pain Hospital Course & Plan: pt presented for lap appy. he tolerated the procedure well. he will be discharged home when criteria met. Departure Discharge to: Home Discharge Instructions Home Meds Active Scripts Tramadol Hcl (TRAMADOL HCL) 50 Mg Tablet, 50 MG PO Q4H for PAIN, #20 TAB Prov:PALMIRA GREENBERG 08/11/18 Metronidazole (FLAGYL) 500 Mg Tablet, 500 MG PO Q8H, #20 TAB Prov:PALMIRA GREENBERG 07/24/18 Venlafaxine Hcl (EFFEXOR XR) 150 Mg Cap.er.24h, 150 MG PO QDAY, #30 Do not take until see Shantel HOOPER to discuss whether to stay on this medication. Prov:MADHU SAAVEDRA MD 03/16/14 Reported Medications Tramadol Hcl (TRAMADOL HCL) 50 Mg Tablet, 50-100 MG PO TID, TAB 08/06/18 Lisinopril (LISINOPRIL) 20 Mg Tablet, 20 MG PO QDAY, TAB 08/06/18 Trazodone Hcl (TRAZODONE HCL) 100 Mg Tablet, 200 MG PO QHS, TAB 08/06/18 Methocarbamol (ROBAXIN) 500 Mg Tablet, 500 MG PO QHS 07/18/18 Albuterol Sulfate (VENTOLIN HFA) 18 Gm Inh, 2 PUFF INH Q4-6H, INH 11/21/17 Fluoxetine Hcl (PROZAC) 40 Mg Capsule, 40 MG PO QDAY, CAPSULE Take with a 20mg cap daily 11/21/17 Tamsulosin Hcl (TAMSULOSIN HCL) 0.4 Mg Cap.er.24h, 0.4 MG PO DAILY, CAP 11/14/17 Fluoxetine Hcl (FLUOXETINE HCL) 20 Mg Capsule, 1 TAB PO DAILY, #90 02/09/16 Lovastatin (Mevacor) 20 Mg Tab, 20 MG PO QHS, 0 Refills 05/17/11 Discontinued Reported Medications Lisinopril (LISINOPRIL) 5 Mg Tablet, 1 TAB PO QDAY, TAB 07/23/18 Discontinued Scripts Ciprofloxacin Hcl 500 Mg Tab (CIPRO 500 MG TAB) 500 Mg Tablet, 500 MG PO BID, #14 TAB Prov:PALMIRA GREENBERG 07/24/18 Diet: Regular Activity: No Heavy Lifting Special Instructions: no lifting more than 15 lbs for 4 wks. ok to shower tomorrow. take stool softener while taking pain meds. f/u dr. heather greenberg 2 wks ([phone]). PALMIRA GREENBERG Aug 11, 2018 18:22
--- NOTE | 2018-08-11 18:29 | Post Operative Progress Note ---
Post Operative Progress Note Date: Aug 11, 2018 Time: 18:22 Surgeon: dr. heather greenberg Chain Maker Hand: none Anesthesia: gen, local dr. montalvo Pre-Op Diagnosis: right lower quadrant pain Post-Op Diagnosis: same Procedure(s): lap appy, mesh removal, egd Specimen Removed:(May be N/A): appendix, mesh, distal esoph bx Complications: none Fluids: iv crystalloid Estimated Blood Loss: minimal PALMIRA GREENBERG Aug 11, 2018 18:29
[2018-08-11 19:00] VITALS: BP 132/96
[2018-08-11 19:04] VITALS: BP 132/96
[2018-08-11 19:10] VITALS: BP 129/82
[2018-08-11 19:15] VITALS: BP 109/77
[2018-08-11 19:28] VITALS: BP 109/77
--- NOTE | 2018-08-12 07:26 | OPERATIVE REPORT 1 ---
EVENT DATE: August 11, 2018 SURGEON: Kt Faye MD ANESTHESIOLOGIST: Arnav Gupta MD ANESTHESIA: General and local. TAR AND AMMONIA PUMP OPERATOR: None. PREOPERATIVE DIAGNOSES 1. Right lower quadrant pain. 2. Thickened esophagus on CT scan. POSTOPERATIVE DIAGNOSES 1. Right lower quadrant pain. 2. Thickened esophagus on CT scan. 3. Abnormal appendix. 4. Mesh plug in right lower quadrant. PROCEDURE PERFORMED 1. Laparoscopic appendectomy. 2. EGD. FLUIDS IV crystalloid. ESTIMATED BLOOD LOSS Minimal. SPECIMENS 1. Appendix. 2. Mesh plug from right lower quadrant. 3. Distal esophageal biopsies. COMPLICATIONS None. INDICATIONS This is a 58-year old male with chronic right lower quadrant pain. Colonoscopy found what appeared to be an inverted appendix. CT scan found thickened distal esophagus. Risks and benefits of the procedure were explained and consent was signed. DESCRIPTION OF PROCEDURE Patient was taken to the operating room and placed in the supine position. General anesthesia was administered per Anesthesia team. Patient was prepped and draped in normal sterile fashion. Local analgesia was injected into the dermis above the umbilicus and a small incision was made. I attempted to use Veress needle to achieve pneumoperitoneum. However, the needle did not pass easily. Therefore, I made a small incision below the left costal margin after injecting local analgesia and Optiview technique was used to easily enter the abdomen. Pneumoperitoneum was achieved. I then placed a 5 mm supraumbilical port under direct vision followed by a 5 mm suprapubic port followed by 12 mm left lower quadrant port. I inspected the abdomen. There was no injury upon entry. The patient had a mesh plug in the left lower quadrant that appeared to be in appropriate position. In the right lower quadrant there was a mesh plug that appeared more superior than its normal positioning. Using LigaSure and some sharp and blunt dissection, I found the retrocecal appendix. The appendix was abnormal in that after it came off the cecum it turned into a very thin diameter appendix, approximately 2 to 3 mm, and then towards the distal aspect became a dilated appendix and it had one small cyst on it. A window was created at the base of the appendix through the mesoappendix. I then used a 45 mm blue load with the laparoscopic linear stapler to resect a small wedge of the cecum in addition to the appendix in order to resect what I saw on the colonoscopy protruding through the appendiceal orifice. I then used LigaSure to divide the mesoappendix. The appendix was then removed with an Endo Catch bag through the left lower quadrant port site. The right lower quadrant was irrigated and suctioned. Irrigant returned clear. Hemostasis was assured. Staple line was confirmed to be intact. Because the patient was having right lower quadrant pain of unknown etiology and the mesh plug in the right lower quadrant appeared mildly out of position, I used LigaSure to remove this mesh plug. The mesh plug was removed with an Endo Catch bag from the abdomen to the left lower quadrant port site. The abdominal wall in this location was still intact. There was no hernia defect. Hemostasis was assured. I closed the peritoneum with the Endo Stitch device and a running Polysorb stitch. Fascia closure device with an 0 Vicryl stitch was used to close the fascia of the left lower quadrant port site. Other ports were removed under direct vision. Hemostasis was assured. Pneumoperitoneum was relieved. Final port was removed. I then used an 0 Vicryl stitch to further close the fascia of the left lower quadrant port site. All skin incisions were closed with 4-0 Monocryl subcuticular stitches. More local analgesia was injected. Appropriate dressings were applied. After placing the bite block, I then passed the endoscope through the oropharynx down the esophagus and into the stomach and then partially into the jejunal limb. The stomach and jejunal limb appeared within normal limits. The esophagus did appear somewhat thickened but there were no masses. There was mild irritation in the distal esophagus. Biopsies were taken. Hemostasis was assured. Gastroscope was then withdrawn. Patient tolerated the procedure well. There were no complications. [facility]
== END 2018-08-11 18:50 | disposition home or self-care (01) ==
LOC: OR 00:38
PROVIDERS: ATTEND Surgery
DX: R10.31 Right lower quadrant pain (principal); K22.8 Other specified diseases of esophagus; Q43.8 Other specified congenital malformations of intestine
CPT/HCPCS: 43239; 44970; 88300; 88304; 88305; 88313; A9270; J1100; J1956; J2001; J2405; J2704; J3010; J3490

== ENCOUNTER → 2018-11-03 | Outpatient (CLI) | payer MEDICARE ==
[2014-03-14 16:40] VITALS: BMI 45.5
[~2018-11-03] MED LIST changes: +ARIP5TAB; +MUSCLE RELAXANT; +ONDA4TAB9; +PSYCH MED; +TIZA-128
== END ==
LOC: AMB 16:39
PROVIDERS: ATTEND Nurse Practitioner
DX: M25.511 Pain in right shoulder (principal); R51 Headache; M25.571 Pain in right ankle and joints of right foot; W01.0XXA Fall on same level from slipping, tripping and stumbling without subsequent striking against object, initial encounter
CPT/HCPCS: A0425; A0427

== ENCOUNTER 2018-11-09 09:51 | Emergency (ER) | payer MEDICARE ==
[2014-03-14 16:40] VITALS: Wt 109.8 kg
[~2018-11-09 09:51] MED LIST changes: -ARIP5TAB; -ONDA4TAB9; -TIZA-128
[2018-11-09 10:05] VITALS: BP 115/79
[2018-11-09] MEDS ORDERED: TIZA-128 (10:15)
[2018-11-09] MEDS ORDERED: ONDA4TAB9 (10:15)
[2018-11-09] MEDS ORDERED: ARIP5TAB (10:15)
[2018-11-09 10:41] LABS: PLATELET COUNT, AUTOMATED 102 K/uL (150-450)
--- NOTE | 2018-11-09 10:41 | EKG ---
FACILITY: [facility] PATIENT NAME: JOE BLUNT : [id number] MR: [id number] V: [id number] EXAM DATE: ORDERING PHYSICIAN: ROGER HANSEN TECHNOLOGIST: JOANNE Henson Reason : CONFUSION Blood Pressure : / mmHG Vent. Rate : 077 BPM Atrial Rate : 077 BPM P-R Int : 158 ms QRS Dur : 106 ms QT Int : 414 ms P-R-T Axes : 046 -48 048 degrees QTc Int : 468 ms Sinus rhythm Left axis Nonspecific interventricular conduction delay Poor R wav eprogression anteriorly Abnormal ECG When compared with ECG of 03-NOV-2018 17:54, No significant change was found Confirmed by MADHU SAAVEDRA ([id number]) on 11/09/2018 12:54:53 PM Referred By: TYRONE Confirmed By:MADHU SAAVEDRA
--- NOTE | 2018-11-09 10:55 | ER Report ---
History and Physical Time Seen By MD: 10:52 Hx. of Stated Complaint: PT REPORTS FALL AT HOME LAST FRIDAY, REPORTS BEING SEEN IN ED AND BY PCP, PT REPORTS CONTINUED CONFUSION, VOMITING, "NOT FEELING WELL", PT ALSO FELL OUT OF TRUCK WHILE ATTEMPTING TO COME TO ED TODAY HPI/ROS CHIEF COMPLAINT: Fall, hit head, continual confusion, dizziness since fall on Friday HISTORY OF PRESENT ILLNESS: 58-year-old male patient presents to emergency room with complaint of fall. Patient states that he has had perpetual confusion and dizziness since his fall last Friday. He states he called yesterday talk to Steve Escalante, his primary care provider, thinking that it was Friday. He states they called back today as a the since he still having the dizziness, confusion that he should return to the emergency room and get reevaluated. Patient states that he has perpetual nausea, he vomited Friday after his discharge. Patient states that he went out fishing today and was unable to get back into his friend's truck and fell backwards. Patient states when he fell backwards and hit his head again. REVIEW OF SYSTEMS: Respiratory: No cough, no dyspnea. Cardiovascular: No chest pain, no palpitations. Gastrointestinal: No vomiting, no abdominal pain. Musculoskeletal: Pain to the left elbow, neck. Allergies: Coded Allergies: codeine (Verified Allergy, Mild, RASH, 11/09/18) ceftriaxone (Verified Allergy, Unknown, 11/09/18) latex (Verified Allergy, Unknown, 11/09/18) PT STATES THEY TOLD HIM LAST TIME HE WAS HERE THAT HE WAS ALLERGIC TO IT. lactose (Verified Adverse Reaction, Unknown, 11/09/18) Home Meds Active Scripts Tramadol Hcl (TRAMADOL HCL) 50 Mg Tablet, 50 MG PO Q4-6H, #5 TAB Prov:NIKO LOVE 11/09/18 Venlafaxine Hcl (EFFEXOR XR) 150 Mg Cap.er.24h, 150 MG PO QDAY, #30 Do not take until see Steve HOOPER to discuss whether to stay on this medication. Prov:MADHU SAAVEDRA MD 03/16/14 Reported Medications Ondansetron 4 Mg Odt (ONDANSETRON 4 MG ODT) 4 Mg Tab.rapdis 11/09/18 Aripiprazole (Aripiprazole) 5 Mg Tablet 11/09/18 Tizanidine Hcl (TIZANIDINE HCL) 4 Mg Tablet 11/09/18 Tramadol Hcl (TRAMADOL HCL) 50 Mg Tablet, 50-100 MG PO TID, TAB 08/06/18 Lisinopril (LISINOPRIL) 20 Mg Tablet, 20 MG PO QDAY, TAB 08/06/18 Trazodone Hcl (TRAZODONE HCL) 100 Mg Tablet, 200 MG PO QHS, TAB 08/06/18 Albuterol Sulfate (VENTOLIN HFA) 18 Gm Inh, 2 PUFF INH Q4-6H, INH 11/21/17 Fluoxetine Hcl (PROZAC) 40 Mg Capsule, 40 MG PO QDAY, CAPSULE Take with a 20mg cap daily 11/21/17 Tamsulosin Hcl (TAMSULOSIN HCL) 0.4 Mg Cap.er.24h, 0.4 MG PO DAILY, CAP 11/14/17 Fluoxetine Hcl (FLUOXETINE HCL) 20 Mg Capsule, 1 TAB PO DAILY, #90 02/09/16 Lovastatin (Mevacor) 20 Mg Tab, 20 MG PO QHS, 0 Refills 05/17/11 Discontinued Reported Medications [Psych Med] No Conflict Check 11/03/18 [Muscle Relaxant] No Conflict Check 11/03/18 Methocarbamol (ROBAXIN) 500 Mg Tablet, 500 MG PO QHS 07/18/18 Discontinued Scripts Tramadol Hcl (TRAMADOL HCL) 50 Mg Tablet, 50 MG PO Q4-6H PRN for PAIN, #6 TAB Prov:NIKO LOVE SPANISH PROFESSOR 11/03/18 Tramadol Hcl (TRAMADOL HCL) 50 Mg Tablet, 50 MG PO Q4H for PAIN, #20 TAB Prov:PALMIRA MOTT P 08/11/18 Metronidazole (FLAGYL) 500 Mg Tablet, 500 MG PO Q8H, #20 TAB Prov:PALMIRA MOTT P 07/24/18 Past Medical/Surgical History Patient has a past medical history of migraines, heart murmur, angina, hypertension, hyperlipidemia, emphysema, COPD, reflux, hiatal hernia, kidney failure, frequent UTIs, arthritis, chronic back pain, substance abuse, marijuana use, depression. Patient has a surgical history of gastric bypass, appendectomy, cholecystectomy, kidney stones, left knee surgery, left ankle surgery, rotator cuff surgery, left shoulder replacement, back surgery, hernia repair, gastric bypass, cardiac catheter. Patient has a family medical history of cancer, CAD, stroke, diabetes Reviewed Nurses Notes: Yes Hx Smoking: Yes (POT ONLY ) Smoking Status: Former Smoker Exposure to Second Hand Smoke?: No Hx Substance Use Disorder: Yes (SOBER X 10 YRS, POT) Hx Alcohol Use: No Constitutional Vital Sign - Last 24 Hours 11/09/18 10:05 Temp 97.6 Pulse 86 Resp 20 B/P (MAP) 115/79 Pulse Ox 96 O2 Delivery Room Air Physical Exam General Appearance: The patient is alert, has no immediate need for airway protection and no current signs of toxicity. Respiratory: Chest is non tender, lungs are clear to auscultation. Cardiac: regular rate and rhythm Gastrointestinal: Abdomen is soft and non tender, no masses, bowel sounds normal. Musculoskeletal: Neck: Neck is supple and tender. Extremities have full range of motion and are non tender. Skin: No rashes or lesions. DIFFERENTIAL DIAGNOSIS: After history and physical exam differential diagnosis was considered for head injury including but not limited to concussion, skull fracture, intraparenchymal contusion, subarachnoid, subdural and epidural hematoma. Medical Decision Making Data Points Result Diagram: 11/09/18 1015 11/09/18 1015 Laboratory Hematology Test 11/09/18 10:15 White Blood Count 2.9 k/uL (4.5-11.0) L Red Blood Count 4.47 M/uL (4.00-5.60) Hemoglobin 13.1 g/dL (14.0-18.0) L Hematocrit 37.8 % (42.0-52.0) L Mean Corpuscular Volume 84.5 fL (80.0-96.0) Mean Corpuscular Hemoglobin 29.3 pg (26.0-33.0) Mean Corpuscular Hemoglobin Concent 34.7 g/dL (32.0-36.0) Red Cell Distribution Width 16.7 % (11.5-14.5) H Platelet Count 102 K/uL (150-450) L Mean Platelet Volume 7.7 fL (7.2-11.1) Neutrophils (%) (Auto) 58.7 % (39.4-72.5) Lymphocytes (%) (Auto) 30.0 % (17.6-49.6) Monocytes (%) (Auto) 8.3 % (4.1-12.4) Eosinophils (%) (Auto) 2.0 % (0.4-6.7) Basophils (%) (Auto) 1.0 % (0.3-1.4) Nucleated RBC Relative Count (auto) 0.2 /100WBC Neutrophils # (Auto) 1.7 K/uL (2.0-7.4) L Lymphocytes # (Auto) 0.9 K/uL (1.3-3.6) L Monocytes # (Auto) 0.2 K/uL (0.3-1.0) L Eosinophils # (Auto) 0.1 K/uL (0.0-0.5) Basophils # (Auto) 0.0 K/uL (0.0-0.1) Nucleated RBC Absolute Count (auto) 0.01 K/uL Chemistry Test 11/09/18 10:15 Sodium Level 134 mmol/L (137-145) Potassium Level 4.3 mmol/L (3.5-5.0) Chloride Level 102 mmol/L (98-107) Carbon Dioxide Level 20 mmol/L (22-30) Blood Urea Nitrogen 24 mg/dl (9-21) Creatinine 1.60 mg/dl (0.66-1.25) Glomerular Filtration Rate Calc 44.3 Random Glucose 101 mg/dl (75-110) Calcium Level 9.4 mg/dl (8.4-10.2) Magnesium Level 1.8 mg/dl (1.7-2.2) Total Bilirubin 1.0 mg/dl (0.2-1.3) Aspartate Amino Transf (AST/SGOT) 23 U/L (0-35) Alanine Aminotransferase (ALT/SGPT) 32 U/L (0-56) Alkaline Phosphatase 96 U/L (0-126) Total Protein 6.3 g/dl (6.3-8.2) Albumin 3.8 g/dl (3.5-5.0) Thyroid Stimulating Hormone (TSH) 2.39 uIU/ml (0.46-4.68) Toxicology Test 11/09/18 10:15 11/09/18 10:38 Salicylates Level < 10 mg/L Salicylate Last Dose Date Unk Acetaminophen Level < 10 ug/ml Serum Alcohol < 10 mg/dl Urine Opiates Screen Negative Urine Barbiturates Screen Negative Ur Tricyclic Antidepressants Screen Negative Urine Phencyclidine Screen Negative Urine Amphetamines Screen Negative Urine Benzodiazepines Screen Positive Urine Cocaine Screen Negative Urine Cannabinoids Screen Positive Urinalysis Test 11/09/18 10:38 Urine Color Yellow Urine Clarity Clear Urine pH 5.0 pH (4.8-9.5) Urine Specific [place] 1.013 Urine Protein Negative mg/dL (NEGATIVE) Urine Glucose (UA) Negative mg/dL (NEGATIVE) Urine Ketones Trace mg/dL (NEGATIVE) Urine Blood Negative (NEGATIVE) Urine Nitrite Negative (NEGATIVE) Urine Bilirubin Negative (NEGATIVE) Urine Urobilinogen 2.0 mg/dL (0.2-1.9) Urine Leukocyte Esterase Negative (NEGATIVE) Urine RBC <1 /HPF (0-2/HPF) Urine WBC <1 /HPF (0-5/HPF) Urine Squamous Epithelial Cells Few /LPF (</=FEW) Urine Bacteria Negative /HPF (NONE-FEW) Urine Hyaline Casts Many /LPF (NONE-FEW) Urine Mucus None /HPF (NONE-FEW) EKG/Imaging Imaging CT Cervical Spine Indication: Fall with neck pain. Comparison: 11/03/2018. Technique: Axial CT imaging of the cervical spine was performed. 2-D sagittal and coronal CT reformats were also obtained. One of the following dose optimization techniques was utilized in the performance of this exam: automated exposure control; adjustment of the mA and/or kV according to the patient's size; or use of an iterative reconstruction technique. Specific details can be referenced in the facility's radiology CT exam operational policy. Findings: The vertebral bodies are aligned. No acute fracture or facet dislocation. No bony lesions. Minimal degenerative changes are present without sequelae. The endplates are maintained. The pedicles well seen. Surrounding soft tissues and the prevertebral soft tissues are normal. Visualized brain is unremarkable. Lung apices are clear. Impression: 1. No acute osseous or acute alignment abnormality of the cervical spine Report Dictated By: Jhonny Miranda at 11/09/2018 12:17 PM Report E-Signed By: Jhonny Miranda at 11/09/2018 12:23 PM ELBOW 3 VIEW LEFT Indication: Left elbow pain after fall. Comparison: None Available Findings: 3 views of the left elbow. No fracture or dislocation. No joint effusion. No bony lesions or significant degenerative change. Small olecranon spur. Soft tissues are unremarkable. IV tubing is present. IMPRESSION: 1. No acute osseous abnormality of the left elbow. Report Dictated By: Jhonny Miranda at 11/09/2018 1:40 PM Report E-Signed By: Jhonny Miranda at 11/09/2018 1:[address] scan without contrast HISTORY: Headache, vomiting COMPARISONS: November 03, 2018 TECHNIQUE: Non-contrast head CT was performed with sagittal and coronal reformations. One of the following dose optimization techniques was utilized in the performance of this exam: automated exposure control; adjustment of the mA and/or kV according to patient size; or use of iterative reconstruction technique. Specific details can be referenced in the facility's radiology CT exam operational policy. FINDINGS: There is no intracranial hemorrhage, hydrocephalus or midline shift. The basal cisterns, brandon-white differentiation, and convexity sulci are maintained. Normal orbital soft tissues. The mastoid air cells are clear. The paranasal sinuses are clear. The osseous structures are normal. IMPRESSION: No acute intracranial abnormality. Report Dictated By: Moris Ibarra MD at 11/09/2018 11:24 AM Report E-Signed By: Moris Ibarra MD at 11/09/2018 11:30 AM ED Course/Re-evaluation ED Course Patient was admitted to exam room, history and physical were obtained. Differential diagnoses were considered. On examination lungs are clear, heart is regular, abdomen is soft nontender. Patient did have some tenderness to the cervical spine as well as the left elbow. CT scan of the head, cervical spine, left elbow were done. Results were negative for any fractures or acute abnormalities. Discuss findings with patient. Patient was requesting more pain medication. I discussed this with the patient's primary care provider. Is my thought at this time with a negative CT scan of the head that if he is having persistent symptoms is related to a post concussive syndrome. And I would encourage follow-up with neurology. We also discussed pain medication. The provider states that he is not been showing any signs of drug-seeking behavior. She states that she is given him 15 tramadol which will last him months. We will go ahead and discharge patient home with enemas supply of pain medication. Patient verbalized understanding and agreement with plan. Decision to Disposition Date: Nov 09, 2018 Decision to Disposition Time: 14:15 Depart Departure Latest Vital Signs Vital Signs Date Time Temp Pulse Resp B/P (MAP) Pulse Ox O2 Delivery O2 Flow Rate FiO2 11/09/18 10:05 97.6 86 20 115/79 96 Room Air Core Temperature (Celsius): 36.5 Impression: Primary Impression: Post concussion syndrome Condition: Improved Disposition: HOME OR SELF-CARE Referrals: STEVE ESCALANTE (PCP) New Scripts Tramadol Hcl (TRAMADOL HCL) 50 Mg Tablet 50 MG PO Q4-6H, #5 TAB Prov: NIKO LOVE 11/09/18 Patient Instructions: Post Concussion Syndrome (ED) Additional Instructions: Get plenty of rest. Limit activity by pain. Limit TV and computer time. Monitor for confusion, increased irritability, uncontrollable vomiting, worsening headache or difficulty to arouse. Return to the ER if those are to occur. Follow up with your primary care provider in the next 2-3 days. If there is no improvement at that time I would recommend referral to neurology. NIKO LOVE Nov 09, 2018 10:55
--- NOTE | 2018-11-09 11:37 | RADIOLOGY IMAGING REPORT ---
FACILITY: [facility] [place] PATIENT NAME: Eleno Nunes : 1960 MR: [id number] V: [id number] EXAM DATE: ORDERING PHYSICIAN: ROGER HANSEN TECHNOLOGIST: Location: [facility] [place] Patient: Eleno Nunes : 1960 Visit/Account:[id number] Date of Sevice: 11/09/[address] scan without contrast HISTORY: Headache, vomiting COMPARISONS: November 03, 2018 TECHNIQUE: Non-contrast head CT was performed with sagittal and coronal reformations. One of the following dose optimization techniques was utilized in the performance of this exam: autom ated exposure control; adjustment of the mA and/or kV according to patient size; or use of iterative reconstruction technique. Specific details can be referenced in the facility's radiology CT exam ope rational policy. FINDINGS: There is no intracranial hemorrhage, hydrocephalus or midline shift. The basal cisterns, brandon-white differentiation, and convexity sulci are maintained. Normal orbital soft tissues. The mastoid air cells are clear. The paranasal sinuses are clear. The osseous structures are normal . IMPRESSION: No acute intracranial abnormality. Report Dictated By: Moris Ibarra MD at 11/09/2018 11:24 AM Report E-Signed By: Moris Ibarra MD at 11/09/2018 11:30 AM [id number]
[2018-11-09] MEDS ORDERED: ONDANSETRON 4 MG/2 ML VIAL IVP ONE (11:40)
--- NOTE | 2018-11-09 12:31 | RADIOLOGY IMAGING REPORT ---
FACILITY: [facility] PATIENT NAME: Eleno Nunes : 1960 MR: [id number] V: [id number] EXAM DATE: ORDERING PHYSICIAN: NIKO LOVE TECHNOLOGIST: Location: [facility] Patient: Eleno Nunes : 1960 Visit/Account:[id number] Date of Sevice: 11/09/2018 CT Cervical Spine Indication: Fall with neck pain. Comparison: 11/03/2018. Technique: Axial CT imaging of the cervical spine was performed. 2-D sagittal and coronal CT reforma ts were also obtained. One of the following dose optimization techniques was utilized in the performance of this exam: autom ated exposure control; adjustment of the mA and/or kV according to the patient's size; or use of an i terative reconstruction technique. Specific details can be referenced in the facility's radiology CT exam operational policy. Findings: The vertebral bodies are aligned. No acute fracture or facet dislocation. No bony lesions. Minimal de generative changes are present without sequelae. The endplates are maintained. The pedicles well seen . Surrounding soft tissues and the prevertebral soft tissues are normal. Visualized brain is unremark able. Lung apices are clear. Impression: 1. No acute osseous or acute alignment abnormality of the cervical spine Report Dictated By: Jhonny Miranda at 11/09/2018 12:17 PM Report E-Signed By: Jhonny Miranda at 11/09/2018 12:23 PM WSN:[id number]
--- NOTE | 2018-11-09 13:50 | RADIOLOGY IMAGING REPORT ---
FACILITY: PATIENT NAME: Eleno Nunes : 1960 MR: [id number] V: [id number] EXAM DATE: ORDERING PHYSICIAN: NIKO LOVE TECHNOLOGIST: [place] [facility] [place]eno N[place] : 1960 Visit/Account:[id number] Date of Sevice: 11/09/2018 ELBOW 3 VIEW LEFT Indication: Left elbow pain after fall. Comparison: None Available Findings: 3 views of the left elbow. No fracture or dislocation. No joint effusion. No bony lesions or signific ant degenerative change. Small olecranon spur. Soft tissues are unremarkable. IV tubing is present. IMPRESSION: 1. No acute osseous abnormality of the left elbow. Report Dictated By: Jhonny Miranda at 11/09/2018 1:40 PM Report E-Signed By: Jhonny Miranda at 11/09/2018 1:42 PM WSN:[id number]
[2018-11-09] MEDS ORDERED: TRAM-420 PO (14:21)
[2018-11-09] MEDS ORDERED: traMADol 50 MG TAB PO ONE (14:25)
== END 2018-11-09 14:39 | disposition home or self-care (01) ==
LOC: ER 10:32
DX: F07.81 Postconcussional syndrome (principal); E78.5 Hyperlipidemia, unspecified; I10 Essential (primary) hypertension; J43.9 Emphysema, unspecified; F32.9 Major depressive disorder, single episode, unspecified; Z87.891 Personal history of nicotine dependence; Z79.899 Other long term (current) drug therapy
CPT/HCPCS: 70450; 72125; 73080; 80305; 81001; 83735; 84443; 85025; 93005; 96374; 99285; A9270; G0480; J2405; 80320; 80329; 82040; 82247; 82310; 82374; 82435; 82565; 82947; 84075; 84132; 84155; 84295; 84450; 84460; 84520